=== PATIENT | female | born 1960 | race Caucasian/White ===

== ENCOUNTER 2016-06-26 14:26 | Inpatient (IN) | payer MEDICARE, MEDICAID ==
[2016-06-26 14:27] VITALS: BMI 25.4
--- NOTE | 2016-06-26 16:21 | C.PDOC ---
History Of Present Illness 55 y/o female presents to the ED for evaluation of open sore to the left heel. She reports that she has taken two antibiotics, she does not remember the first one, but she is now on Clindamycin without any healing or improvement of pain. Patient states she was evaluated by Dr. Dowling who told her to come to the ER. Patient denies any fever, chest pain, shortness of breath, nausea, vomiting, or other complaints. Time Seen by Provider: 06/26/16 15:25 Chief Complaint (Nursing): Lower Extremity Problem/Injury History Per: Patient History/Exam Limitations: no limitations Onset/Duration Of Symptoms: Days, Persistent Current Symptoms Are (Timing): Still Present Recent travel outside of the [place]: No Past Medical History Reviewed: Historical Data, Nursing Documentation, Vital Signs Vital Signs: Last Vital Signs Temp 98.2 F 06/26/16 15:17 Pulse 79 06/26/16 15:17 Resp 19 06/26/16 15:17 BP 122/72 06/26/16 15:17 Pulse Ox 99 06/26/16 17:37 - Medical History PMH: Hypercholesterolemia, Multiple Sclerosis Surgical History: No Surg Hx - [facility] Procedures DRAINAGE OF URETHRA WITH DRAINAGE DEVICE, ENDO (10/19/15) INSERTION OF INFUSION DEV INTO SUP VENA CAVA, PERC APPROACH (03/13/16) MEASUREMENT OF URINARY PRESSURE, VIA OPENING (10/19/15) PLAIN RADIOGRAPHY OF BLADDER AND URETHRA (10/19/15) Family History: States: No Known Family Hx - Social History Hx Tobacco Use: No Hx Alcohol Use: No Hx Substance Use: No - Immunization History Hx Tetanus Toxoid Vaccination: No Hx Influenza Vaccination: No Hx Pneumococcal Vaccination: No Review Of Systems Except As Marked, All Systems Reviewed And Found Negative. Constitutional: Negative for: Fever Cardiovascular: Negative for: Chest Pain Respiratory: Negative for: Shortness of Breath Gastrointestinal: Negative for: Nausea, Vomiting Musculoskeletal: Positive for: Foot Pain (left foot w/ open sore) Physical Exam - Physical Exam Appears: Non-toxic, No Acute Distress Skin: Warm, Dry Head: Atraumatic, Normacephalic Neck: Normal ROM Chest: Symmetrical Cardiovascular: Rhythm Regular Respiratory: Normal Breath Sounds, No Rales, No Rhonchi, No Wheezing Extremity: Normal ROM, Other (left foot, right sided hemapheresis, 2 cm diameter sore to the left heel with some erythema extending to the top of the left foot) Pulses: Left Dorsalis Pedis: Normal, Right Dorsalis Pedis: Normal Neurological/Psych: Oriented x3, Normal Speech, Normal Cognition, No Normal Cranial Nerves (r nasolabial fold flattening), No Normal Motor (weakness in all 4 extremities, R>L), Normal Sensation ED Course And Treatment - Laboratory Results Result Diagrams: 06/26/16 16:33 06/26/16 17:02 O2 Sat by Pulse Oximetry: 99 (ra) Pulse Ox Interpretation: Normal - Other Rad Chest X-Ray X-Ray: Viewed By Me, Read By Radiologist Interpretation: Accession No. : [id number]. Patient Name / ID : RAJESH SANTANA / [id number]. Exam Date : 06/26/2016 16:03:05 ( Approved ). Study Comment : Sex / Age : F / 55Y. Creator : Spring Andrade V. Dictator : Spring Andrade V. Target Man : Shirt Cleaner : Spring nAdrade V. Approver2 : Report Date : 06/26/2016 16:57:44. My Comment : . PROCEDURE: CHEST RADIOGRAPH, 1 VIEW. HISTORY: admission. COMPARISON: None available. FINDINGS: LUNGS: Shallow lungs. Fullness of the right hilum either due to crowding or right central pathology. No consolidation noted. PLEURA: No pneumothorax or pleural fluid seen. CARDIOVASCULAR: Normal. OSSEOUS STRUCTURES: No significant abnormalities. VISUALIZED UPPER ABDOMEN: Normal. OTHER FINDINGS: None. IMPRESSION: No consolidation. Prominent right hilum possibly due to crowding due to the shallow inspiration. Consider chest x-ray PA and lateral with greater inspiration when patient can tolerate X-Ray, Left Foot X-Ray: Viewed By Me, Read By Radiologist Interpretation: Accession No. : [id number]. Patient Name / ID : RAJESH SANTANA / [id number]. Exam Date : 06/26/2016 16:02:53 ( Approved ). Study Comment : Sex / Age : F / 55Y. Creator : Spring Andrade V. Dictator : Spring Andrade V. Target Man : Shirt Cleaner : Spring Andrade V. Approver2 : Report Date : 06/26/2016 16:55:29. My Comment : . PROCEDURE: Left Foot Radiographs. HISTORY: heel infection. COMPARISON: None. FINDINGS: BONES: No fracture. No gross periosteal reactions seen to suggest osteomyelitis. A hindfoot ulcer as the approximate see calcaneus. No gross cortical destruction here noted 1st metatarsal-phalangeal joint hypertrophic arthrosis of hallux valgus orientation. Sissoring of the 5th toe over the 4th in the 1st toe over the 2nd. JOINTS: Normal. SOFT TISSUES: A 1.2 cm hindfoot ulcer suggested. Atherosclerotic vascular calcifications present. There is dorsal and plantar midfoot and forefoot soft tissue swelling synthesis subcutaneous edema is lymphedema and/or cellulitis here. OTHER FINDINGS: None. IMPRESSION: Hindfoot soft tissue ulceration. No gross contiguous cortical interruption or periosteal reaction seen to suggest osteomyelitis. Midfoot and forefoot circumferential soft tissue swelling and hyperdensity - consistent with lymphedema and/or cellulitis. Findings appear most pronounced over the dorsal aspect. No subcutaneous gas seen Progress Note: Chest X-Ray, Blood Work, and Left Foot X-Ray were ordered. Patient treated with Vancomycin IVPB. Case was d/w pt's PMD who accepted patient for admission for foot ulcer, cellulitis, failing outpatient po treatment. Disposition - Disposition Disposition: HOSPITALIZED Disposition Time: 17:43 Condition: FAIR - Clinical Impression Clinical Impression: Foot ulcer, Cellulitis of foot, Multiple sclerosis - PA / SPECIFICATIONS WRITER / Resident Statement MD/DO has reviewed & agrees with the documentation as recorded. - Scribe Statement The provider has reviewed the documentation as recorded by the Scribe (Yaz Jacobson) All medical record entries made by the Scribe were at my direction and personally dictated by me. I have reviewed the chart and agree that the record accurately reflects my personal performance of the history, physical exam, medical decision making, and the department course for this patient. I have also personally directed, reviewed, and agree with the discharge instructions and disposition. Decision To Admit - Pt Status Changed To: Hospital Disposition Of: Inpatient - Admit Certification Admit to Inpatient:: After my assessment, the patient will require hospitalization for at least two midnights. This is because of the severity of symptoms shown, intensity of services needed, and/or the medical risk in this patient being treated as an outpatient. - InPatient: Physician Admission Certification: I certify that this patient requires 2 or more midnights of care for the following reason:: Foot ulcer with cellulitis that failed outpatient treatment with 2 different po antibiotics. She will need IV antibiotics for more than 2 days. - . Bed Request Type: Regular Admitting Physician: Ady Dowling Patient Diagnosis: Foot ulcer, Cellulitis of foot, Multiple sclerosis
[2016-06-26 16:35] LABS: ADD MANUAL DIFF? NO
[2016-06-26 16:56] LABS: BASO % 0.4 % (0.0-2.0); EOS # 0.1 K/uL (0.0-0.7); EOS % 0.7 % (0.0-4.0); HEMATOCRIT 45.2 % (34.0-47.0); LYMPH # 1.2 K/uL (1.0-4.3); MEAN CELL VOLUME 82.9 fL (81.0-99.0); MEAN CORPUSCULAR HGB CONC 32.6 g/dL (33.0-37.0); MEAN PLATELET VOLUME 9.7 fL (7.2-11.7); MONO # 0.9 K/uL (0.0-0.8); MONO % 7.7 % (0.0-10.0); PLATELET COUNT 275 K/uL (130-400); WHITE BLOOD COUNT 11.3 K/uL (4.8-10.8)
--- NOTE | 2016-06-26 16:56 | RAD ---
PROCEDURE: Left Foot Radiographs HISTORY: heel infection COMPARISON: None. FINDINGS: BONES: No fracture. No gross periosteal reactions seen to suggest osteomyelitis. A hindfoot ulcer as the approximate see calcaneus. No gross cortical destruction here noted 1st metatarsal-phalangeal joint hypertrophic arthrosis of hallux valgus orientation. Sissoring of the 5th toe over the 4th in the 1st toe over the 2nd JOINTS: Normal. SOFT TISSUES: A 1.2 cm hindfoot ulcer suggested. Atherosclerotic vascular calcifications present. There is dorsal and plantar midfoot and forefoot soft tissue swelling synthesis subcutaneous edema is lymphedema and/or cellulitis here. OTHER FINDINGS: None. IMPRESSION: Hindfoot soft tissue ulceration. No gross contiguous cortical interruption or periosteal reaction seen to suggest osteomyelitis. Midfoot and forefoot circumferential soft tissue swelling and hyperdensity - consistent with lymphedema and/or cellulitis. Findings appear most pronounced over the dorsal aspect. No subcutaneous gas seen
--- NOTE | 2016-06-26 16:59 | RAD ---
PROCEDURE: CHEST RADIOGRAPH, 1 VIEW HISTORY: admission COMPARISON: None available. FINDINGS: LUNGS: Shallow lungs. Fullness of the right hilum either due to crowding or right central pathology. No consolidation noted PLEURA: No pneumothorax or pleural fluid seen. CARDIOVASCULAR: Normal. OSSEOUS STRUCTURES: No significant abnormalities. VISUALIZED UPPER ABDOMEN: Normal. OTHER FINDINGS: None. IMPRESSION: No consolidation. Prominent right hilum possibly due to crowding due to the shallow inspiration Consider chest x-ray PA and lateral with greater inspiration when patient can tolerate
[2016-06-26 17:06] LABS: BLOOD UREA NITROGEN 14 mg/dL (7-17); CHLORIDE 98 mmol/L (98-107); GFR AFRICAN-AMERICAN > 60; GLUCOSE,RANDOM 91 mg/dL (65-105); POTASSIUM 4.5 mmol/L (3.6-5.2); SODIUM 137 mmol/L (132-148)
[2016-06-26 17:07] LABS: ALB/GLOB RATIO 1.3 (1.0-2.1); ALKALINE PHOSPHATASE 79 U/L (38-126); ALT/SGPT 21 U/L (9-52); AST/SGOT 34 U/L (14-36); BILIRUBIN,TOTAL 0.8 mg/dL (0.2-1.3); CALCIUM 9.2 mg/dl (8.6-10.4); CARBON DIOXIDE 23 mmol/L (22-30); TOTAL PROTEIN 8.3 g/dL (6.3-8.3)
[2016-06-26] MEDS ORDERED: guaiFENesin 200 mg/10 ml Syrup UD PO STA (22:31)
[2016-06-27 01:27] VITALS: RESP 20
[2016-06-27] MEDS ORDERED: Baclofen 5 mg Tab PO SCH (10:00)
[2016-06-27] MEDS: Pantoprazole 40 mg EC Tab PO SCH (11:00)
--- NOTE | 2016-06-27 11:27 | HP ---
This is a 55-year-old [place] female with history of multiple sclerosis and advanced lower extremity and upper extremity weakness. The patient is mostly wheelchair bound. The patient left foot redness and pain and ulceration. The patient has been treated by podiatry for the same for about 2 months . The patient was evaluated also redness of the left foot signs of cellulitis. REVIEW OF SYSTEMS: is negative . HOME MEDICATIONS: Crestor 5 mg daily, omeprazole 40 mg daily. SOCIAL HISTORY: No history of smoking, ETOH or substance abuse. FAMILY HISTORY: Not contributory. PAST MEDICAL HISTORY: Multiple sclerosis, gastroesophageal reflux disease. PHYSICAL EXAMINATION: GENERAL: The patient is in bed, comfortable . VITAL SIGNS: Blood pressure 118/77, temperature 98.2, 16 and pulse 76. HEENT: Pupils reactive to light. Normal-appearing mucosa of the conjunctivae , oropharyngeal, nasal membrane mucosa. NECK: Supple, no JVD, no carotid bruit, no lymph node, no thyromegaly. CHEST AND LUNGS: Bilateral symmetrical expansion, good air exchange. No rales , no rhonchi. CARDIOVASCULAR: PMI not localized, S1, S2. No additional sounds. ABDOMEN: Normoactive bowel sounds, no tenderness, no organomegaly, no masses. EXTREMITIES: No cyanosis, no clubbing, no edema. CENTRAL NERVOUS SYSTEM: Alert, awake, oriented x 3 and patient has bilateral lower extremity weakness _ with ulcer on the left side heel. ASSESSMENT: 1. Left foot ulcer with cellulitis. 2. Multiple sclerosis with bilateral lower . PLAN: We will give patient oral vancomycin and Primaxin. Continue current medications. Podiatry consult. Ady Dowling MD cc: [id number] TT: 06/27/2016 09:04:56 en MTDD
--- NOTE | 2016-06-27 16:55 | CP.PCM.PN ---
Subjective - Date & Time of Evaluation Date of Evaluation: 06/27/16 Time of Evaluation: 16:56 - Subjective Subjective: alert, orientedx3, no sob or chest pains. Has diffused rash generalized, no itching. Objective - Vital Signs/Intake and Output Vital Signs (last 24 hours): Temp Pulse Resp BP Pulse Ox 97.9 F 85 20 109/76 96 06/27/16 08:27 06/27/16 08:27 06/27/16 08:27 06/27/16 08:27 06/27/16 08:27 Intake and Output: 06/27/16 06/27/16 06:59 18:59 Intake Total 790 Balance 790 - Medications Medications: Current Medications Baclofen (Lioresal) 10 mg PO DAILY [facility] Last Admin: 06/27/16 12:10 Dose: 10 mg Diphenhydramine HCl (Benadryl) 25 mg PO Q6 PRN PRN Reason: Itching / Pruritus Heparin Sodium (Porcine) (Heparin) 5,000 units SC Q12 [facility] Last Admin: 06/27/16 11:00 Dose: 5,000 units Vancomycin HCl 750 mg/ Sodium (Chloride) 250 mls @ 166 mls/hr IVPB Q12H [facility] Last Admin: 06/27/16 06:36 Dose: 166 mls/hr Methylprednisolone (Solu-Medrol) 125 mg IVP ONCE ONE Stop: 06/27/16 16:51 Pantoprazole Sodium (Protonix Ec Tab) 40 mg PO DAILY [facility] Last Admin: 06/27/16 11:00 Dose: 40 mg Rosuvastatin Calcium (Crestor) 5 mg PO HS [facility] Last Admin: 06/26/16 21:37 Dose: 5 mg Assessment and Plan - Assessment and Plan (Free Text) Assessment: notified with diffused rash generalized on the body . Seen and examined with DR Dowling. Possible allergic reaction to the present antibiotic. No respiratory distress or fever. Will discontinue imipenum and give solumedrol 125 mg stat and continue with benadryl 25 mg q6 h prn. Monitor closely.
--- NOTE | 2016-06-27 23:04 | PN ---
DATE: 06/27/2016 SUBJECTIVE: The patient is seen today, 06/27/2016. The patient has upper chest and trunk rashes. She is not itchy, but she complains of cough. PHYSICAL EXAMINATION: VITAL SIGNS: Blood pressure is 110/74, temperature 99.3, respiratory rate 20, and pulse is 88. HEENT: Pupils equal, reactive to light. Normal-appearing mucosa of the conjunctivae, oropharyngeal and nasal membrane mucosa. NECK: Supple, no JVD, no carotid bruit, no lymph node, no thyromegaly. CHEST AND LUNGS: Bilateral symmetrical expansion, good air exchange, no rales, no rhonchi. CARDIOVASCULAR: PMI not localized. S1, S2. No additional sounds. ABDOMEN: Normoactive bowel sounds, no tenderness, no organomegaly, no masses. EXTREMITIES: No cyanosis, no clubbing, no edema. There is a left heel ulcer and edema. SKIN: The patient has maculopapular erythematous rashes all over the upper chest and upper trunk. CENTRAL NERVOUS SYSTEM: Alert, awake, oriented x 2 and the patient has bilateral lower extremity deformity and weakness secondary to multiple sclerosis. ASSESSMENT: 1. Left foot ulcer with cellulitis. 2. Diffuse skin rashes, likely drug reaction. PLAN: We will stop the Primaxin, give patient Solu-Medrol and Benadryl and will continue vancomycin for now. Ady Dowling MD cc: [id number] TT: 06/27/2016 23:03:24 Confirmation # [id number] Dictation # [id number] priscilla BERG
[2016-06-28] MEDS: Pantoprazole 40 mg EC Tab PO SCH (10:51)
[2016-06-28 11:18] LABS: HEMATOCRIT 39.1 % (34.0-47.0); LYMPH # 0.9 K/uL (1.0-4.3); LYMPH % 17.6 % (20.0-40.0); MEAN CELL VOLUME 82.5 fL (81.0-99.0); MEAN CORPUSCULAR HEMOGLOBIN 27.3 pg (27.0-31.0); MEAN CORPUSCULAR HGB CONC 33.1 g/dL (33.0-37.0); MEAN PLATELET VOLUME 9.6 fL (7.2-11.7); MONO # 0.5 K/uL (0.0-0.8); RED CELL DISTRIBUTION WIDTH 15.6 % (11.5-14.5); WHITE BLOOD COUNT 5.3 K/uL (4.8-10.8)
[2016-06-28 11:27] LABS: CHLORIDE 101 mmol/L (98-107); POTASSIUM 4.1 mmol/L (3.6-5.2); SODIUM 138 mmol/L (132-148)
[2016-06-28 11:29] LABS: GFR AFRICAN-AMERICAN > 60
[2016-06-28 11:30] LABS: BLOOD UREA NITROGEN 17 mg/dL (7-17); CARBON DIOXIDE 24 mmol/L (22-30); GLUCOSE,RANDOM 106 mg/dL (65-105)
--- NOTE | 2016-06-28 13:18 | CP.PCM.CON ---
History of Present Illness - History of Present Illness History of Present Illness: 55 y/o female with left heel ulceration. with resolving cellulitis Patient seen by Dr. Simmons at bedside. Patient states she has been on multiple antibiotics for heel ulceration of which she felt had gotten worse so she presented ot [facility] ED for evaluation and was admitted. At time of exam no pain complaint is noted. NO other pedal complaints noted. Past Patient History - Infectious Disease Hx of Infectious Diseases: None - Past Medical History & Family History Past Medical History?: Yes - Past Social History Smoking Status: Never Smoked - CARDIAC Hx Hypercholesterolemia: Yes - PULMONARY Hx Respiratory Disorders: No - NEUROLOGICAL Hx Neurological Disorder: Yes Hx Multiple Sclerosis: Yes - HEENT Hx HEENT Problems: No - RENAL Hx Chronic Kidney Disease: No - ENDOCRINE/METABOLIC Hx Endocrine Disorders: No - HEMATOLOGICAL/ONCOLOGICAL Hx Blood Disorders: No - INTEGUMENTARY Hx Dermatological Problems: No - MUSCULOSKELETAL/RHEUMATOLOGICAL Hx Musculoskeletal Disorders: Yes Hx Falls: Yes - GASTROINTESTINAL Hx Gastrointestinal Disorders: No - GENITOURINARY/GYNECOLOGICAL Hx Genitourinary Disorders: No - PSYCHIATRIC Hx Psychophysiologic Disorder: No Hx Substance Use: No - SURGICAL HISTORY Hx Surgeries: No Other/Comment: right arm fx - ANESTHESIA Hx Anesthesia: No Hx Anesthesia Reactions: No Hx Malignant Hyperthermia: No Has any member of the family had a problem w/ anesthesia?: No Meds Allergies/Adverse Reactions: Allergies Allergy/AdvReac Type Severity Reaction Status Date / Time No Known Allergies Allergy Verified 06/26/16 15:19 - Medications Medications: Current Medications Acetaminophen (Tylenol 325mg Tab) 650 mg PO Q6 PRN PRN Reason: Pain, moderate (4-7) Baclofen (Lioresal) 10 mg PO DAILY [facility] Last Admin: 06/28/16 10:54 Dose: 10 mg Diphenhydramine HCl (Benadryl) 25 mg PO Q6 PRN PRN Reason: Itching / Pruritus Last Admin: 06/28/16 10:51 Dose: 25 mg Heparin Sodium (Porcine) (Heparin) 5,000 units SC Q12 [facility] Last Admin: 06/28/16 10:52 Dose: 5,000 units Vancomycin HCl 750 mg/ Sodium (Chloride) 250 mls @ 166 mls/hr IVPB Q12H [facility] Last Admin: 06/28/16 05:00 Dose: 166 mls/hr Pantoprazole Sodium (Protonix Ec Tab) 40 mg PO DAILY [facility] Last Admin: 06/28/16 10:51 Dose: 40 mg Rosuvastatin Calcium (Crestor) 5 mg PO HS [facility] Last Admin: 06/27/16 22:03 Dose: 5 mg Physical Exam - Constitutional Appears: Well, Non-toxic Results - Vital Signs Recent Vital Signs: Last Vital Signs Temp 98.3 F 06/28/16 08:15 Pulse 73 06/28/16 08:15 Resp 20 06/28/16 08:15 BP 95/63 L 06/28/16 08:15 Pulse Ox 97 06/28/16 08:15 - Labs Result Diagrams: 06/28/16 11:09 06/28/16 11:09 Labs: Laboratory Results - last 24 hr 06/28/16 06/28/16 11:09 11:09 WBC 5.3 D RBC 4.74 Hgb 12.9 Hct 39.1 MCV 82.5 MCH 27.3 MCHC 33.1 RDW 15.6 H Plt Count 253 MPV 9.6 Neut % (Auto) 73.4 Lymph % (Auto) 17.6 L [place] % (Auto) 9.0 Eos % (Auto) 0.0 Baso % (Auto) 0.0 Neut # 3.9 Lymph # 0.9 L [place] # 0.5 Eos # 0.0 Baso # 0.0 Sodium 138 Potassium 4.1 Chloride 101 Carbon Dioxide 24 Anion Gap 17 BUN 17 Creatinine 0.6 L Est GFR ( Amer) > 60 Est GFR (Non-Af Amer) > 60 Random Glucose 106 H Assessment & Plan - Assessment and Plan (Free Text) Assessment: 55 y/o female with left heel ulceration with resolving cellulitis. Plan: Patient evaluated and charts reviewed Seen by attending Dr. Lozoya Wound debrided at bedside by Dr. Lozoya w/o complicaiton Wound orders put in place by Dr. Lozoya. Wound does not appear to be deep to the bone; Will continue to follow as needed.
[2016-06-28 14:03] LABS: CALCIUM 8.6 mg/dl (8.6-10.4)
[2016-06-29] MEDS ORDERED: guaiFENesin 100 mg/5 ml Syrup UD PO ONE (06:49)
--- NOTE | 2016-06-29 08:07 | PN ---
DATE: 06/28/2016 SUBJECTIVE: She has ulcer on the left heel with decreasing cellulitis in the area around, and x-ray did not show any evidence of osteomylitis. PHYSICAL EXAMINATION. VITAL SIGNS: Blood pressure 130/63, temperature 98.3, respiratory rate 20, and pulse 73. HEENT: Pupils equal, reactive to light. Normal-appearing mucosa of the conjunctivae, oropharyngeal, and nasal membrane mucosa. NECK: Supple, no JVD, no carotid bruit, no lymph nodes, no thyromegaly. CHEST AND LUNGS: No rales, no rhonchi. CARDIOVASCULAR: PMI not localized, S1 and S2. no additional sounds. ABDOMEN: Normoactive bowel sounds, no tenderness, no organomegaly, no masses. EXTREMITIES: No cyanosis, no clubbing, no edema. Left heel ulcer, which is 1 x 2 cm, and with surrounding tenderness and no purulent discharge. ASSESSMENT: 1. Left heel ulcer with cellulitis. 2. Multiple sclerosis with bilateral lower extremity weakness. . PLAN: Continue current IV antibiotics, vancomycin, Primaxin, because of the suspicion of allergic reaction and evaluate for subacute rehabilitation. Ady Dowling MD cc: [id number] TT: 06/28/2016 23:36:04 Confirmation # [id number] Dictation # [id number] pro MTDD
[2016-06-29 08:39] VITALS: BP 122/79; PULSE 73; TEMP 98; O2SAT 100
[2016-06-29] MEDS: Pantoprazole 40 mg EC Tab PO SCH (10:00)
[2016-06-29] MEDS ORDERED: Gadodiamide 287 MG/ML VIAL (15ML) IV ONE (14:05)
--- NOTE | 2016-06-29 16:06 | CP.PCM.PN ---
Subjective - Date & Time of Evaluation Date of Evaluation: 06/29/16 Time of Evaluation: 16:06 - Subjective Subjective: ALERT, AWAKE, NO ACUTE DISTRESS. Objective - Vital Signs/Intake and Output Vital Signs (last 24 hours): Temp Pulse Resp BP Pulse Ox 98.0 F 73 20 122/79 100 06/29/16 08:38 06/29/16 08:38 06/29/16 08:38 06/29/16 08:38 06/29/16 08:38 Intake and Output: 06/29/16 06/29/16 06:59 18:59 Intake Total 1000 Balance 1000 - Medications Medications: Current Medications Acetaminophen (Tylenol 325mg Tab) 650 mg PO Q6 PRN PRN Reason: Pain, moderate (4-7) Last Admin: 06/29/16 07:08 Dose: 650 mg Baclofen (Lioresal) 10 mg PO DAILY [facility] Last Admin: 06/29/16 09:59 Dose: 10 mg Diphenhydramine HCl (Benadryl) 25 mg PO Q6 PRN PRN Reason: Itching / Pruritus Last Admin: 06/28/16 21:05 Dose: 25 mg Heparin Sodium (Porcine) (Heparin) 5,000 units SC Q12 [facility] Last Admin: 06/29/16 10:00 Dose: 5,000 units Vancomycin HCl 750 mg/ Sodium (Chloride) 250 mls @ 166 mls/hr IVPB Q12H [facility] Last Admin: 06/29/16 06:01 Dose: 166 mls/hr Pantoprazole Sodium (Protonix Ec Tab) 40 mg PO DAILY [facility] Last Admin: 06/29/16 10:00 Dose: 40 mg Rosuvastatin Calcium (Crestor) 5 mg PO HS [facility] Last Admin: 06/28/16 21:05 Dose: 5 mg - Labs Labs: 06/28/16 11:09 06/28/16 11:09 Assessment and Plan - Assessment and Plan (Free Text) Assessment: Patient is seen and examined in the room. Alert and orientedx3, complaints of pain on left foot. Sent for MRI today. D/W DR Dowling, plan to send to [place] today on vancomycin iv x7 days, continue wound care and follow up on MRI results. Patient verbalized understanding.
--- NOTE | 2016-06-29 16:08 | MRI ---
MRI left hindfoot History: Cellulitis. Evaluate for osteomyelitis. Comparison: None available. Technique: Multi-echo multiplanar sequences were performed through the left hindfoot without and with the use of intravenous contrast. Findings: Large soft tissue ulcer seen within the lateral posterior soft tissues at the level of the hindfoot measuring 2.1 x 1.1 centimeters extending to the subchondral bone of the lateral posterior calcaneus. Within the calcaneus, there is focal signal abnormality measuring approximately 1.2 x .4 centimeters demonstrating patchy decreased T1 signal with increased STIR signal and post-contrast enhancement concerning for a developing acute osteomyelitis. Focal signal abnormality seen within the mid calcaneus just inferior to the sinus tarsi with focal decreased T1 signal and increased STIR signal which may represent an underlying stress injury versus subchondral osseous injury versus developing osteochondral change. Clinical correlation. Anterior extensor tendons are preserved. Mild tenosynovitis of the posterior tibial tendon sheath. Remainder of the medial flexor tendons are preserved. Mild partial split tear of the peroneus brevis tendon at the level of the lateral malleolus. Anterior and posterior tibiofibular ligaments are preserved. Anterior and posterior talofibular ligaments are preserved. Achilles tendon preserved. Mild increased signal seen within the plantar fascia at its insertion on the inferior calcaneus. Sinus tarsi preserved. Deltoid ligament is preserved. Impression: 1. Large soft tissue ulcer seen within the lateral posterior soft tissues at the level of the hindfoot measuring 2.1 x 1.1 centimeters extending to the subchondral bone of the lateral posterior calcaneus. Within the calcaneus, there is focal signal abnormality measuring approximately 1.2 x .4 centimeters demonstrating patchy decreased T1 signal with increased STIR signal and post-contrast enhancement concerning for a developing acute osteomyelitis. 2. Focal signal abnormality seen within the mid calcaneus just inferior to the sinus tarsi with focal decreased T1 signal and increased STIR signal which may represent an underlying stress injury versus subchondral osseous injury versus developing osteochondral change. Clinical correlation. 3. Mild tenosynovitis of the posterior tibial tendon sheath. Remainder of the medial flexor tendons are preserved. 4. Mild partial split tear of the peroneus brevis tendon at the level of the lateral malleolus. 5. Mild increased signal seen within the plantar fascia at its insertion on the inferior calcaneus.
--- NOTE | 2016-06-30 00:17 | DS ---
REASON FOR ADMISSION: The patient is seen today, 06/29/2016. She is not in any cardiopulmonary distress. This is a 55-year-old [place] female with history of disabling multiple sclerosis admitted for left foot ulcer associated with cellulitis. COURSE OF HOSPITALIZATION: The patient was admitted to medical floor and she was on Primaxin. The patient started to develop rashes and Primaxin was started and the patient was given also 1 dose of Solu-Medrol and Benadryl. The patient's symptoms remarkably improved and the patient was also having podiatry consultation done during this admission. The patient was started on physical therapy and discharged to subacute rehabilitation at [facility] to continue current medications. FINAL DIAGNOSES: Left foot ulcer, cellulitis, multiple sclerosis. Ady Dowling MD cc: [id number] TT: 06/30/2016 00:17:32 priscilla BERG
== END 2016-06-29 18:20 | DRG 593 ==
LOC: C.ER 14:26 → C.3T 17:47
PROVIDERS: ADMIT Internal Medicine; ATTEND Internal Medicine
PROC: 0HDNXZZ Extraction of Left Foot Skin, External Approach (ICD-10-PCS; principal; 2016-06-26)
DX: L97.429 Non-pressure chronic ulcer of left heel and midfoot with unspecified severity (principal); L03.119 Cellulitis of unspecified part of limb; G35 Multiple sclerosis; R21 Rash and other nonspecific skin eruption; E78.00 Pure hypercholesterolemia, unspecified; Z79.899 Other long term (current) drug therapy; K21.9 Gastro-esophageal reflux disease without esophagitis; T45.3X5A Adverse effect of enzymes, initial encounter

== ENCOUNTER 2017-01-14 08:12 | Day surgery (SDC) | payer MEDICARE, MEDICAID ==
[2016-12-26 13:41] VITALS: BMI 25.4
[2017-01-14] MEDS ORDERED: Bacitracin 50,000 UNIT in Sodium Chloride 0.9% Irrig 1,000 ML IR SCH (08:45)
[2017-01-14] MEDS ORDERED: ceFAZolin IV 1 gm in Dextrose 1 GM/50 ML BAG IVPB ONE (08:47)
[2017-01-14] MEDS ORDERED: ceFAZolin IV 2 gm in Dextrose 0 GM/0 ML BAG IVPB ONE (08:48)
[2017-01-14] MEDS ORDERED: Propofol 10 mg/ml 1,000 MG/100 ML VIAL ONE (08:49)
[2017-01-14] MEDS ORDERED: Midazolam 2 MG/2 ML VIAL ONE (08:50)
[2017-01-14] MEDS ORDERED: Lactated Ringer's 1,000 ML IV ONE ×2 (08:52)
[2017-01-14] MEDS: Lidocaine 1% Inj (20ml) ONE ×2 (08:54→09:30)
[2017-01-14] MEDS: Bupivacaine 0.5% Inj(30mL) ONE ×2 (08:54→09:30)
[2017-01-14] MEDS ORDERED: HYDROmorphone 0.5 mg/0.5 ml ISec IVP PRN (11:05)
[2017-01-14] MEDS ORDERED: Oxycodone/Acetaminophen 5/325 mg Tab PO PRN ×2 (11:05)
--- NOTE | 2017-01-14 11:13 | PCM.SURG1 ---
Surgeon's Initial Post Op Note - Surgeon's Notes Surgeon: Dr. Bustillo Clinical Implementation Specialist: Dr. Aundrea Calderon, PGY-2; Dr. Richard Schaefer PGY-1 Type of Anesthesia: IV Sedation, Local Pre-Operative Diagnosis: hallux valgus right foot Operative Findings: see op report Post-Operative Diagnosis: same Operation Performed: osteotomy 1st metatarsal right foot with k-wire fixation, osteotomy proximal phalanx right foot Specimen/Specimens Removed: bone Estimated Blood Loss: EBL {In ML}: 10 Blood Products Given: N/A Drains Used: No Drains Post-Op Condition: Good Date of Surgery/Procedure: 01/14/17 Time of Surgery/Procedure: 09:30
[2017-01-14 13:40] VITALS: BP 101/69; PULSE 67; RESP 18; TEMP 97.9; O2SAT 99
--- NOTE | 2017-01-15 08:51 | RAD ---
PROCEDURE: Right Foot Radiographs. HISTORY: s/p right foot surgery COMPARISON: 12/27/2016 FINDINGS: BONES: Marked osteopenia present. Interval osteotomy 1st metatarsal with malalignment suggested on the oblique view - distal osseous structures projecting inferior to the proximal metatarsal. The pin transfixes these 2 post osteotomy sites. A discrete 6-7 mm triangular osseous fragment on the lateral view is dorsal to the pin. A single view cortical offset of the 1st proximal phalanx is suggested. Examination is limited with the overlying obscuring cast-/splint a fracture this 1st proximal phalanx is suspect. The medial 1st metatarsal head is partially excise probably relating to concomitant splenectomy here JOINTS: Normal. SOFT TISSUES: Innumerable soft tissue calcifications/ossifications consistent with innumerable phleboliths and/ or dermato myositis. OTHER FINDINGS: None. IMPRESSION: Postop changes as above. 6 to 7 mm triangular osseous fragment dorsal to pin. Correlate clinically Probable nondisplaced fracture 1st proximal phalanx -exam limited with confounding overlying obscuration by cast/splint
== END 2017-01-14 16:13 | disposition home or self-care (01) ==
LOC: C.SDS 08:12
PROVIDERS: ATTEND Podiatrist Foot Surgery
DX: M20.11 Hallux valgus (acquired), right foot (principal)
CPT/HCPCS: 28299; 73630; 88304; 97163; 97530; G8978; G8979; J2250; J3010; J7120

== ENCOUNTER 2017-04-24 10:46 | Inpatient (IN) | payer MEDICARE, MEDICAID ==
[2017-04-24 10:47] VITALS: BMI 25.4
[2017-04-24] MEDS ORDERED: Piperacillin/Tazobact 3.375 gm 100 ML IV STA (11:19)
--- NOTE | 2017-04-24 12:26 | C.PDOC ---
History Of Present Illness 72-year-old female, is sent to the emergency department by her doctor, for IV antibiotics for right infection. Patient states her foot was infected, and she had a surgery for it, after which she was in rehab. Denies fevers, chills, nausea/vomiting, recent travel. dizziness, headache or any other associated symptoms. No other complaints at this time. Retail Shift Leader Angel Lozoya MD Time Seen by Provider: 04/24/17 10:53 Chief Complaint (Nursing): Abnormal Skin Integrity History Per: Patient History/Exam Limitations: no limitations Past Medical History Reviewed: Historical Data, Nursing Documentation, Vital Signs Vital Signs: Last Vital Signs Temp 97.8 F 04/24/17 10:48 Pulse 80 04/24/17 10:48 Resp 18 04/24/17 10:48 BP 133/90 04/24/17 10:48 Pulse Ox 99 04/24/17 14:49 - Medical History PMH: Arthritis, Hypercholesterolemia, Multiple Sclerosis - [facility] Procedures DRAINAGE OF URETHRA WITH DRAINAGE DEVICE, ENDO (10/19/15) EXTRACTION OF LEFT FOOT SKIN, EXTERNAL APPROACH (06/26/16) INSERTION OF INFUSION DEV INTO SUP VENA CAVA, PERC APPROACH (12/26/16) MEASUREMENT OF URINARY PRESSURE, VIA OPENING (10/19/15) PLAIN RADIOGRAPHY OF BLADDER AND URETHRA (10/19/15) Family History: States: No Known Family Hx - Social History Hx Tobacco Use: No Hx Alcohol Use: No Hx Substance Use: No - Immunization History Hx Tetanus Toxoid Vaccination: No Hx Influenza Vaccination: No Hx Pneumococcal Vaccination: No Review Of Systems Constitutional: Negative for: Fever, Chills Cardiovascular: Negative for: Chest Pain Respiratory: Negative for: Shortness of Breath Gastrointestinal: Negative for: Nausea, Vomiting Musculoskeletal: Positive for: Foot Pain Neurological: Negative for: Weakness, Numbness Physical Exam - Physical Exam Appears: Non-toxic, No Acute Distress Skin: Warm, Dry, No Diaphoretic, No Rash Head: No Atraumatic, No Normacephalic Neck: Normal ROM Cardiovascular: Rhythm Regular, No Murmur Respiratory: Normal Breath Sounds, No Accessory Muscle Use Extremity: Capillary Refill (<2 seconds), No Deformity, No Swelling, Other ( Right foot:dorsal aspect of metatarsal wutg a dry oopen wound, with swelling and tenderness) Pulses: Left Dorsalis Pedis: Normal, Right Dorsalis Pedis: Normal Neurological/Psych: Oriented x3, Normal Speech ED Course And Treatment - Laboratory Results Result Diagrams: 04/24/17 12:30 04/24/17 12:30 O2 Sat by Pulse Oximetry: 99 (RA) Pulse Ox Interpretation: Normal Progress Note: Bloodwork, Blood cultures, UA, XR Foot ordered and reviewed. Patient treated with Zosyn. Disposition Discussed With Dr.: Ady Dowling Doctor Will See Patient In The: Hospital - Disposition Disposition: HOSPITALIZED Disposition Time: 14:00 Condition: STABLE - POA Present On Arrival: None - Clinical Impression Clinical Impression: Cellulitis, Cellulitis of foot - Scribe Statement The provider has reviewed the documentation as recorded by the Scribe (Irvin Amador) All medical record entries made by the Scribe were at my direction and personally dictated by me. I have reviewed the chart and agree that the record accurately reflects my personal performance of the history, physical exam, medical decision making, and the department course for this patient. I have also personally directed, reviewed, and agree with the discharge instructions and disposition. Decision To Admit - Pt Status Changed To: Hospital Disposition Of: Inpatient - Admit Certification Admit to Inpatient:: After my assessment, the patient will require hospitalization for at least two midnights. This is because of the severity of symptoms shown, intensity of services needed, and/or the medical risk in this patient being treated as an outpatient. - InPatient: Physician Admission Certification: I certify that this patient requires 2 or more midnights of care for the following reason:: cellulitis foot - . Bed Request Type: Regular Admitting Physician: Ady Dowling Patient Diagnosis: Cellulitis, Cellulitis of foot, Cellulitis
[2017-04-24] MEDS ORDERED: Piperacillin/Tazobact 3.375 GM in Sodium Chloride 100 ML IVPB ONE (12:30)
[2017-04-24 12:38] LABS: BASO % 0.4 % (0.0-2.0); EOS % 0.4 % (0.0-4.0); HEMOGLOBIN 12.5 g/dL (11.0-16.0); LYMPH # 1.5 K/uL (1.0-4.3); LYMPH % 16.2 % (20.0-40.0); MEAN CORPUSCULAR HEMOGLOBIN 28.3 pg (27.0-31.0); MEAN PLATELET VOLUME 9.7 fL (7.2-11.7); MONO # 0.4 K/uL (0.0-0.8); MONO % 4.7 % (0.0-10.0); NEUT # 7.3 K/uL (1.8-7.0); NEUT % 78.3 % (50.0-75.0); RBC 4.43 Mil/uL (3.80-5.20); RED CELL DISTRIBUTION WIDTH 14.5 % (11.5-14.5); WHITE BLOOD COUNT 9.3 K/uL (4.8-10.8)
[2017-04-24 12:40] LABS: MEAN CELL VOLUME 83.3 fL (81.0-99.0)
[2017-04-24 12:54] LABS: ALB/GLOB RATIO 1.4 (1.0-2.1); ALT/SGPT 26 U/L (9-52); AST/SGOT 23 U/L (14-36); BLOOD UREA NITROGEN 10 mg/dL (7-17); CALCIUM 9.4 mg/dl (8.6-10.4); GFR AFRICAN-AMERICAN > 60; GFR NON-AFRICAN AMERICAN > 60
--- NOTE | 2017-04-24 16:26 | RAD ---
Right foot dated 04/24/2017. History: Cellulitis. Three views right foot performed. Findings: Current study reveals deformity of the distal 1/3 of the 1st metatarsal and base proximal phalanx 1st digit ; rule out postoperative sequela or sequela of old trauma. Clinical correlation recommended. No evidence of acute displaced fracture nor dislocation. Osseous structures appear demineralized though otherwise intact. No cortical destructive changes seen. 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 Multi articular DJD. . There is mild diffuse circumferential soft tissue swelling most pronounced on the lateral view at the level of the plantar and the dorsal soft tissues surrounding the metatarsals consistent with this patient's history of cellulitis. Questionable defect within the posterior calcaneal soft tissues consider . Followup polyp MRI if osteomyelitis suspected Impression: Questionable postoperative versus posttraumatic changes 1st ray as described. No cortical destructive changes. Diffuse circumferential soft tissue swelling consistent with cellulitis. Consider followup MRI further evaluation is required.
[2017-04-24 17:41] LABS: SQUAMOUS EPITHIAL 18 /hpf (0-5); URINE BACTERIA OCC (<OCC); URINE BILIRUBIN NEGATIVE (NEGATIVE); URINE BLOOD NEGATIVE (NEGATIVE); URINE CLARITY Hazy (Clear); URINE COLOR Yellow (YELLOW); URINE GLUCOSE (UA) NORMAL (Normal); URINE LEUKOCYTE ESTERASE 3+ Leu/uL (Negative); URINE NITRATE NEGATIVE (NEGATIVE); URINE PROTEIN NEGATIVE (NEGATIVE); URINE UROBILINOGEN NORMAL mg/dL (0.2-1.0)
[2017-04-24] MEDS ORDERED: Piperacill/Tazo 3.375gm in Dex 3.375 GM/50 ML BAG IVPB SCH (22:00)
[2017-04-24] MEDS: Piperacillin/Tazobact 3.375 GM in Sodium Chloride 0.9% 100 ML IVPB SCH (22:35)
[2017-04-24] MEDS: Vancomycin 1 gm/NS 200 ml 1 GM/200 ML BAG IVPB SCH (23:54)
[2017-04-25 01:05] VITALS: RESP 20
[2017-04-25] MEDS: Piperacillin/Tazobact 3.375 GM in Sodium Chloride 0.9% 100 ML IVPB SCH ×3 (05:37→21:02)
[2017-04-25] MEDS: Calcium-Vit D 250 mg-125 Units Tab UD PO SCH (09:02)
[2017-04-25] MEDS: Omega-3-Acid Ethyl Esters 1 GM Cap PO SCH ×2 (09:03→17:36)
[2017-04-25] MEDS: Multiple Vitamins Tab PO SCH (09:03)
--- NOTE | 2017-04-25 11:01 | CP.PCM.CON ---
History of Present Illness - History of Present Illness History of Present Illness: Podiatry Consult note for Dr. Lozoya 56 year old female with PMHx including MS was seen at bedside with attending, Dr. Lozoya regarding left foot wound. Patient had left foot hallux valgus correction in January at [facility]. She was then transfered to a [facility]. She was seen in office by Dr. Lozoya where she had redness and the dorsal incision site was dehisced. She states that at home she has been dressing daily. She currently denies any pain to the site. Denies any n/v/f/c/sob/cp. Past Patient History - Infectious Disease Hx of Infectious Diseases: None - Past Medical History & Family History Past Medical History?: Yes - Past Social History Smoking Status: Never Smoked - CARDIAC Hx Hypercholesterolemia: Yes - NEUROLOGICAL Hx Multiple Sclerosis: Yes - INTEGUMENTARY Hx Dermatological Problems: Yes Other/Comment: HX: 12/26/16-CELLULITIS AND INFECTED RIGHT TOE BUNION - MUSCULOSKELETAL/RHEUMATOLOGICAL Hx Arthritis: Yes Hx Falls: Yes - GASTROINTESTINAL Hx Gastrointestinal Disorders: Yes Hx Gastroesophageal Reflux: Yes - PSYCHIATRIC Hx Substance Use: No - SURGICAL HISTORY Hx Surgeries: No Other/Comment: HX:right arm fx; H/O right foot surgery. HX: 01/01/17-PICC LINE RIGHT BASILIC VEIN - ANESTHESIA Hx Anesthesia: No Hx Anesthesia Reactions: No Hx Malignant Hyperthermia: No Has any member of the family had a problem w/ anesthesia?: No Meds Allergies/Adverse Reactions: Allergies Allergy/AdvReac Type Severity Reaction Status Date / Time No Known Allergies Allergy Verified 04/24/17 10:50 - Medications Medications: Current Medications Acetaminophen (Tylenol 325mg Tab) 650 mg PO Q6 PRN PRN Reason: Pain, moderate (4-7) Last Admin: 04/25/17 09:03 Dose: 650 mg Baclofen (Lioresal) 10 mg PO TID [facility] Last Admin: 04/25/17 09:02 Dose: 10 mg Calcium/Vitamin D (Oscal-D 250 Mg-125 Units Tab) 1 tab PO DAILY [facility] Last Admin: 04/25/17 09:02 Dose: 1 tab Heparin Sodium (Porcine) (Heparin) 5,000 units SC Q12 [facility] Last Admin: 04/25/17 09:03 Dose: 5,000 units Piperacillin Sod/Tazobactam (Sod 3.375 gm/ Sodium Chloride) 100 mls @ 200 mls/ hr IVPB Q8H [facility] Last Admin: 04/25/17 05:37 Dose: 200 mls/hr Vancomycin/Sodium Chloride (Vancomycin 1 Gm/Ns 200 Ml) 1 gm in 200 mls @ 133 mls/hr IVPB Q24H [facility] Stop: 04/30/17 00:01 Last Admin: 04/24/17 23:54 Dose: 133 mls/hr Multivitamins (Hexavitamin) 1 tab PO DAILY [facility] Last Admin: 04/25/17 09:03 Dose: 1 tab Grxrw-1-Lnaf Ethyl Esters (Lovaza) 1 gm PO BID [facility] Last Admin: 04/25/17 09:03 Dose: 1 gm Pneumococcal Polyvalent Vaccine (Pneumovax 23 Vaccine) 0.5 ml IM .ONCE ONE Stop: 04/27/17 10:01 Rosuvastatin Calcium (Crestor) 5 mg PO HS [facility] Last Admin: 04/24/17 22:14 Dose: 5 mg Physical Exam - Constitutional Appears: Well, Non-toxic, No Acute Distress - Extremities Exam Additional comments: Left lower extremity focused exam: Vasc: DP and PT pulses palpable 2/4. Temperature gradient warm to cool on LLE. CFT < 3 sec. DERM: Superficial ulceration noted to dorsal aspect of right 1st MTPJ measuring approx 0.8 cm in in length. Periwound area is darkly discolored. No purulent discharge noted upon pressure to wound. No malodor, no fluctuance, no undermining, no probe to bone. Ulcer noted to the posterior aspect of the left heel that measure approximately 0.6 cm by 0.3 cm that probes to tendon, with a fibrotic base, no malodor, no drainage noted. Neuro: Protective sensation grossly intact B/L Ortho: Mild tenderness on palpation to left dorsum foot and posterior heel ulcer - Neurological Exam Neurological exam: Alert, Oriented x3 - Psychiatric Exam Psychiatric exam: Normal Affect, Normal Mood Results - Vital Signs Recent Vital Signs: Last Vital Signs Temp 97.8 F 04/25/17 07:56 Pulse 67 04/25/17 07:56 Resp 20 04/25/17 07:56 BP 110/74 04/25/17 07:56 Pulse Ox 96 04/25/17 07:56 - Labs Result Diagrams: 04/24/17 12:30 04/24/17 12:30 Labs: Laboratory Results - last 24 hr 04/24/17 04/24/17 04/24/17 12:30 12:30 17:27 WBC 9.3 RBC 4.43 Hgb 12.5 Hct 36.9 MCV 83.3 D MCH 28.3 MCHC 34.0 RDW 14.5 Plt Count 293 MPV 9.7 Neut % (Auto) 78.3 H Lymph % (Auto) 16.2 L [place] % (Auto) 4.7 Eos % (Auto) 0.4 Baso % (Auto) 0.4 Neut # (Auto) 7.3 H Lymph # (Auto) 1.5 [place] # (Auto) 0.4 Eos # (Auto) 0.0 Baso # (Auto) 0.0 Sodium 138 Potassium 3.9 Chloride 100 Carbon Dioxide 26 Anion Gap 16 BUN 10 Creatinine 0.5 L Est GFR ( Amer) > 60 Est GFR (Non-Af Amer) > 60 Random Glucose 102 Calcium 9.4 Total Bilirubin 0.5 AST 23 ALT 26 Alkaline Phosphatase 80 Total Protein 7.0 Albumin 4.0 Globulin 3.0 Albumin/Globulin Ratio 1.4 Urine Color Yellow Urine Clarity Hazy Urine pH 7.0 Ur Specific [place] 1.011 Urine Protein Negative Urine Glucose (UA) Normal Urine Ketones Negative Urine Blood Negative Urine Nitrate Negative Urine Bilirubin Negative Urine Urobilinogen Normal Ur Leukocyte Esterase 3+ H Urine WBC (Auto) 77 H Urine RBC (Auto) 2 Ur Squamous Epith Cells 18 H Ur Transition Epith Cell 1 Urine Bacteria Occ H Assessment & Plan - Assessment and Plan (Free Text) Assessment: 56 year old female with left foot dorsal ulcer and posterior heel ulcer Plan: patient examined and evaluated with attending, Dr. Lozoya chart, labs,vitals reviewed;afebrile, absent leukocytosis sed rate ordered left foot dressed with perioxide 4x4s, abd, dsd bactroban ordered ID consulted, recs appreciated podiatry will continue to follow patient while in house
--- NOTE | 2017-04-25 12:29 | CON ---
DATE: 04/25/2017 REQUESTING PHYSICIAN: Dr. Dowling. HISTORY OF PRESENT ILLNESS: This is a 56-year-old [place] female well know to me, she had a prior hallux abducto valgus repair 2 months prior and then she was transferred down to [facility] where upon visiting her on numerous occasions, she was doing well. She had a little dorsal dehiscence which closed at the last visit last week in [facility]. I see her this week with increased cellulitis and dehiscence on the dorsal aspect of the surgical site. At that time, I suggested and urged that the patient be admitted for IV antibiotics for which she has been. Due to the fact that there is prior surgical intervention at the site, underlying osteomyelitis cannot be ruled out. Imaging studies will be difficult to ascertain. Hold of bone biopsy at this time. Suggest ID consult. The patient is refusing any prolonged IV antibiotic therapy at this time. Await ID consults for recommendation of oral antibiotic regimen. I still; however, feel that the patient would benefit maximally by some prolong IV antibiotics in a subacute facility. Angel Coelho DPM cc:
--- NOTE | 2017-04-25 17:54 | CP.PCM.CON ---
History of Present Illness - History of Present Illness History of Present Illness: INFECTIOUS DISEASE CONSULTS; HPI; 56-year-old female with past medical history of MS was admitted to the ER by her PMD for IV antibiotics of the right foot infection. Patient had right foot HULLEX valgus correction in January 2017 at [facility]. Patient was then transferred to subacute rehabilitation. She was seen by Dr. CANTRELL-her supply technician regarding her left foot wound which was erythematous and the incision site had dehisced. Patient states she has been doing her dressings daily at home. Patient denies any fever or chills, nausea vomiting, dizziness headache or any other associated symptoms or complaints. Patient denies any pain to the site. X-ray 04/24/17 right foot in ER showed postoperative and post traumatic changes first ray. Diffuse circumferential soft tissue swelling consistent with cellulitis. No cortical destructive changes seen. INFECTIOUS DISEASE CONSULTATION REQUESTED BY pmd FOR CELLULITIS RIGHT FOOT WHICH IS SWOLLEN AND ERYTHEMATOUS. PATIENT STARTED ON iv ZOSYN 3.375 Q 8 HOURLY AND iv VANCOMYCIN 1 G EVERY 24 HOURLY.04/24/17. PMH: Arthritis, Hypercholesterolemia, Multiple Sclerosis - [facility] Procedures DRAINAGE OF URETHRA WITH DRAINAGE DEVICE, ENDO (10/19/15) EXTRACTION OF LEFT FOOT SKIN, EXTERNAL APPROACH (06/26/16) INSERTION OF INFUSION DEV INTO SUP VENA CAVA, PERC APPROACH (12/26/16) MEASUREMENT OF URINARY PRESSURE, VIA OPENING (10/19/15) PLAIN RADIOGRAPHY OF BLADDER AND URETHRA (10/19/15) Family History: States: No Known Family Hx - Social History Hx Tobacco Use: No Hx Alcohol Use: No Hx Substance Use: No - Immunization History Hx Tetanus Toxoid Vaccination: No Hx Influenza Vaccination: No Hx Pneumococcal Vaccination: No ALLERGIES; NKA. Review of Systems - Constitutional Constitutional: absent: Chills, Fever - EENT Eyes: absent: Change in Vision - Cardiovascular Cardiovascular: absent: Chest Pain, Dyspnea - Respiratory Respiratory: absent: Cough - Gastrointestinal Gastrointestinal: absent: Abdominal Pain, Constipation, Diarrhea - Genitourinary Genitourinary: absent: Dysuria, Freq UTI - Integumentary Integumentary: Skin Ulcer (RT.HULLUX ULCER DRY, RT HEEL ULCER.RIGHT FOOT VALGUS DEFORMITY.) - Neurological Neurological: absent: Headaches - Hematologic/Lymphatic Hematologic: As Per HPI Past Patient History - Infectious Disease Hx of Infectious Diseases: None - Past Medical History & Family History Past Medical History?: Yes - Past Social History Smoking Status: Never Smoked - CARDIAC Hx Hypercholesterolemia: Yes - NEUROLOGICAL Hx Multiple Sclerosis: Yes - INTEGUMENTARY Hx Dermatological Problems: Yes Other/Comment: HX: 12/26/16-CELLULITIS AND INFECTED RIGHT TOE BUNION - MUSCULOSKELETAL/RHEUMATOLOGICAL Hx Arthritis: Yes Hx Falls: Yes - GASTROINTESTINAL Hx Gastrointestinal Disorders: Yes Hx Gastroesophageal Reflux: Yes - PSYCHIATRIC Hx Substance Use: No - SURGICAL HISTORY Hx Surgeries: No Other/Comment: HX:right arm fx; H/O right foot surgery. HX: 01/01/17-PICC LINE RIGHT BASILIC VEIN - ANESTHESIA Hx Anesthesia: No Hx Anesthesia Reactions: No Hx Malignant Hyperthermia: No Has any member of the family had a problem w/ anesthesia?: No Meds Allergies/Adverse Reactions: Allergies Allergy/AdvReac Type Severity Reaction Status Date / Time No Known Allergies Allergy Verified 04/24/17 10:50 - Medications Medications: Current Medications Acetaminophen (Tylenol 325mg Tab) 650 mg PO Q6 PRN PRN Reason: Pain, moderate (4-7) Last Admin: 04/25/17 09:03 Dose: 650 mg Baclofen (Lioresal) 10 mg PO TID [facility] Last Admin: 04/25/17 13:36 Dose: 10 mg Calcium/Vitamin D (Oscal-D 250 Mg-125 Units Tab) 1 tab PO DAILY [facility] Last Admin: 04/25/17 09:02 Dose: 1 tab Heparin Sodium (Porcine) (Heparin) 5,000 units SC Q12 [facility] Last Admin: 04/25/17 09:03 Dose: 5,000 units Piperacillin Sod/Tazobactam (Sod 3.375 gm/ Sodium Chloride) 100 mls @ 200 mls/ hr IVPB Q8H [facility] Last Admin: 04/25/17 13:36 Dose: 200 mls/hr Vancomycin/Sodium Chloride (Vancomycin 1 Gm/Ns 200 Ml) 1 gm in 200 mls @ 133 mls/hr IVPB Q24H [facility] Stop: 04/30/17 00:01 Last Admin: 04/24/17 23:54 Dose: 133 mls/hr Multivitamins (Hexavitamin) 1 tab PO DAILY [facility] Last Admin: 04/25/17 09:03 Dose: 1 tab Mupirocin (Bactroban Ointment) 0 gm TOP BID [facility] Last Admin: 04/25/17 17:36 Dose: 1 applic Mbgxs-0-Oevq Ethyl Esters (Lovaza) 1 gm PO BID [facility] Last Admin: 04/25/17 17:36 Dose: 1 gm Pneumococcal Polyvalent Vaccine (Pneumovax 23 Vaccine) 0.5 ml IM .ONCE ONE Stop: 04/27/17 10:01 Rosuvastatin Calcium (Crestor) 5 mg PO [facility] Last Admin: 04/24/17 22:14 Dose: 5 mg Physical Exam - Constitutional Appears: No Acute Distress, Cachectic, Chronically Ill - Head Exam Head Exam: NORMAL INSPECTION - Eye Exam Eye Exam: EOMI, PERRL - ENT Exam ENT Exam: Normal Oropharynx - Neck Exam Neck exam: Positive for: Normal Inspection - Respiratory Exam Respiratory Exam: Clear to Auscultation Bilateral - Cardiovascular Exam Cardiovascular Exam: REGULAR RHYTHM, +S1, +S2 - GI/Abdominal Exam GI & Abdominal Exam: Normal Bowel Sounds, Soft. absent: Tenderness - Extremities Exam Extremities exam: Negative for: calf tenderness, pedal edema - Neurological Exam Neurological exam: Alert, CN II-XII Intact, Oriented x3 - Psychiatric Exam Psychiatric exam: Normal Mood - Skin Skin Exam: Normal Color, Warm - Additional Findings Additional findings: rt.foot in dressing. Results - Vital Signs Recent Vital Signs: Last Vital Signs Temp 98 F 04/25/17 15:38 Pulse 68 04/25/17 15:38 Resp 20 04/25/17 15:38 BP 99/66 L 04/25/17 15:38 Pulse Ox 96 04/25/17 15:38 - Labs Result Diagrams: 04/24/17 12:30 04/24/17 12:30 Labs: Laboratory Results - last 24 hr 04/25/17 13:51 ESR 25 H - Imaging and Cardiology x-ray right foot Status: Report reviewed by me Assessment & Plan (1) Cellulitis of foot Status: Acute (2) Foot ulcer Status: Acute (3) Multiple sclerosis Status: Acute - Assessment and Plan (Free Text) Assessment: IMPRESSION; RT. FOOT CELLULITIS & 1ST MTP-WOUND DEHISCENCE . RT. HEEL ULCER. SEVERE VALGUS DEFORMITY. MULTIPLE SCLEROSIS. (WHEELCHAIR-BOUND.) HYPERCHOLESTEROLEMIA. GERD. PLAN. PANCULTURE. ESR CRP CONTINUE iv ZOSYN 3.375 EVERY 8 HOURLY. 04/24/17 continue IV vancomycin 1 g every 24 hourly to 04/24/17. Follow-up Vanco trough prior to the fourth dose and keep between 10 and 20.. F/U RENAL FUNCTIONS/LFTS WEEKLY. FOLLOW-UP CULTURES TO ADJUST ANTIBIOTICS. LOCAL WOUND CARE PER PODIATRY. WILL DISCUSS WITH. PMD. WILL FOLLOW THE PATIENT AND MAKE ADJUSTMENTS NEEDED. THANK YOU.
[2017-04-25] MEDS: Vancomycin 1 gm/NS 200 ml 1 GM/200 ML BAG IVPB SCH (23:49)
[2017-04-26] MEDS: Piperacillin/Tazobact 3.375 GM in Sodium Chloride 0.9% 100 ML IVPB SCH ×3 (05:23→21:06)
--- NOTE | 2017-04-26 05:56 | HP ---
HISTORY OF PRESENT ILLNESS: This is a 56 years old [place] female with history of multiple sclerosis. She is bedridden. The patient was referred by section hand, Dr. Angel Coelho, on the day of admission to emergency room for admission for infection of the right foot. The patient is status post bunion repair surgery on the right foot. The patient denied to have any fever or chills at this point. Other, review of system is negative. ALLERGIES: NO KNOWN ALLERGIES. MEDICATIONS: As per MAR. PAST MEDICAL HISTORY: Multiple sclerosis, hypercholesterolemia, degenerative joint and spine disease. SOCIAL HISTORY: No history of smoking, EtOH, or substance abuse. FAMILY HISTORY: Noncontributory. PHYSICAL EXAMINATION: GENERAL: The patient is in bed, comfortable, not in any cardiopulmonary distress. VITAL SIGNS: Blood pressure 99/66, temperature 98, respiratory rate 20, and pulse 68. HEENT: Pupils equal and reactive to light. Normal-appearing mucosa of the conjunctivae, oropharynx, and nasal membrane mucosa. NECK: Supple. No JVD. No carotid bruit. No lymph node. No thyromegaly. CHEST/LUNGS: Bilateral symmetrical expansion. Good air exchange. No rales, no rhonchi. CARDIOVASCULAR SYSTEM: PMI not localized. S1 and S2. No additional sounds. ABDOMEN: Normoactive bowel sounds. No tenderness. No organomegaly. No masses. EXTREMITIES: No cyanosis, no clubbing, no edema. The patient has redness on the dorsal aspect of the right foot. MASH GRINDER: Alert, awake, and oriented x2. NEUROLOGIC: No neurological deficit could be appreciated except for bilateral lower extremity weakness. ASSESSMENT: 1. Cellulitis of the right foot, status post bunion repair. 2. Multiple sclerosis, the patient is bedridden. 3. Hypercholesterolemia. PLAN: Continue IV antibiotics. ID consults, Podiatry consult, and follow the recommendations. Resume the patient's home medicine. Ady Dowling MD
[2017-04-26] MEDS: Multiple Vitamins Tab PO SCH (10:24)
[2017-04-26] MEDS: Omega-3-Acid Ethyl Esters 1 GM Cap PO SCH ×2 (10:24→17:43)
[2017-04-26] MEDS: Calcium-Vit D 250 mg-125 Units Tab UD PO SCH (10:25)
--- NOTE | 2017-04-26 10:42 | CP.PCM.PN ---
Subjective - Date & Time of Evaluation Date of Evaluation: 04/26/17 Time of Evaluation: 10:42 - Subjective Subjective: Podiatry Progress note for Dr. Lozoya 56 year old female with was seen at bedside regarding left foot wound. She admits she has some pain to the dorsum of her foot. Denies any n/v/f/c/sob/cp. Objective - Vital Signs/Intake and Output Vital Signs (last 24 hours): Temp Pulse Resp BP Pulse Ox 98 F 61 20 105/72 95 04/26/17 00:00 04/26/17 00:00 04/26/17 00:00 04/26/17 00:00 04/26/17 00:00 Intake and Output: 04/26/17 04/26/17 06:59 18:59 Intake Total 450 Balance 450 - Medications Medications: Current Medications Acetaminophen (Tylenol 325mg Tab) 650 mg PO Q6 PRN PRN Reason: Pain, moderate (4-7) Last Admin: 04/25/17 18:23 Dose: 650 mg Baclofen (Lioresal) 10 mg PO TID [facility] Last Admin: 04/26/17 10:24 Dose: 10 mg Calcium/Vitamin D (Oscal-D 250 Mg-125 Units Tab) 1 tab PO DAILY [facility] Last Admin: 04/26/17 10:25 Dose: 1 tab Heparin Sodium (Porcine) (Heparin) 5,000 units SC Q12 [facility] Last Admin: 04/26/17 10:25 Dose: 5,000 units Piperacillin Sod/Tazobactam (Sod 3.375 gm/ Sodium Chloride) 100 mls @ 200 mls/ hr IVPB Q8H [facility] Last Admin: 04/26/17 05:23 Dose: 200 mls/hr Vancomycin/Sodium Chloride (Vancomycin 1 Gm/Ns 200 Ml) 1 gm in 200 mls @ 133 mls/hr IVPB Q24H [facility] Stop: 04/30/17 00:01 Last Admin: 04/25/17 23:49 Dose: 133 mls/hr Multivitamins (Hexavitamin) 1 tab PO DAILY [facility] Last Admin: 04/26/17 10:24 Dose: 1 tab Mupirocin (Bactroban Ointment) 0 gm TOP BID [facility] Last Admin: 04/26/17 10:30 Dose: 1 applic Mfyrg-8-Mxvi Ethyl Esters (Lovaza) 1 gm PO BID [facility] Last Admin: 04/26/17 10:24 Dose: 1 gm Pneumococcal Polyvalent Vaccine (Pneumovax 23 Vaccine) 0.5 ml IM .ONCE ONE Stop: 04/27/17 10:01 Rosuvastatin Calcium (Crestor) 5 mg PO [facility] Last Admin: 04/25/17 21:02 Dose: 5 mg - Labs Labs: 04/24/17 12:30 04/24/17 12:30 - Constitutional Appears: Well, Non-toxic, No Acute Distress - Extremities Exam Additional comments: Left lower extremity focused exam: Vasc: DP and PT pulses palpable 2/4. Temperature gradient warm to cool on LLE. CFT < 3 sec. DERM: Superficial ulceration noted to dorsal aspect of right 1st MTPJ measuring approx 0.8 cm in in length. Periwound area is darkly discolored. No purulent discharge noted upon pressure to wound. No malodor, no fluctuance, no undermining, no probe to bone. Ulcer noted to the posterior aspect of the left heel that measure approximately 0.6 cm by 0.3 cm that probes to tendon, with a fibrotic base, no malodor, no drainage noted. Neuro: Protective sensation grossly intact B/L Ortho: Mild tenderness on palpation to left dorsum foot and posterior heel ulcer - Neurological Exam Neurological Exam: Alert, Awake, Oriented x3 - Psychiatric Exam Psychiatric exam: Normal Affect, Normal Mood Assessment and Plan - Assessment and Plan (Free Text) Assessment: 56 year old female with left foot dorsal ulcer and posterior heel ulcer Plan: patient examined and evaluated Discussed with attending, Dr. Lozoya chart, labs,vitals reviewed;afebrile, absent leukocytosis ESR 25 left foot dressed with perioxide 4x4s, bactroban, abd, dsd cont iv abx per ID podiatry will continue to follow patient while in house
[2017-04-26] MEDS: Vancomycin 1 gm/NS 200 ml 1 GM/200 ML BAG IVPB SCH (23:59)
--- NOTE | 2017-04-27 01:47 | PN ---
DATE: 04/26/2017. SUBJECTIVE: The patient is seen today 04/26/2017. She is not in any cardiopulmonary distress. The patient is on IV antibiotics as per Infectious Disease oncology consultant. PHYSICAL EXAMINATION: VITAL SIGNS: Blood pressure 105/69, temperature 97.6, respiratory rate 20 and pulse 76. HEENT: Pupils equal, reactive to light. Normal-appearing mucosa of the conjunctivae, oropharynx and nasal membrane mucosa. NECK: Supple. No JVD. No carotid bruit. No lymph node. No thyromegaly. CHEST AND LUNGS: Bilateral symmetrical expansion. Good air exchange. No rales, no rhonchi. CARDIOVASCULAR SYSTEM: PMI not localized. S1, S2. No additional sounds. ABDOMEN: Normoactive bowel sounds. No tenderness. No organomegaly. No masses. EXTREMITIES: No cyanosis, no clubbing, no edema. QUOTATION CHECKER: Alert, awake, oriented x2 and the patient has bilateral paraplegia secondary to multiple sclerosis. ASSESSMENT: 1. Cellulitis of the right lower extremity. 2. Multiple sclerosis. 3. Hypercholesterolemia. PLAN: Continue current IV antibiotics and current medications. Ady Dowling MD
[2017-04-27] MEDS: Piperacillin/Tazobact 3.375 GM in Sodium Chloride 0.9% 100 ML IVPB SCH ×3 (05:12→21:36)
[2017-04-27 06:19] LABS: HEMOGLOBIN 11.9 g/dL (11.0-16.0); MEAN CELL VOLUME 83.3 fL (81.0-99.0); MEAN CORPUSCULAR HEMOGLOBIN 27.9 pg (27.0-31.0); MEAN CORPUSCULAR HGB CONC 33.5 g/dL (33.0-37.0); MEAN PLATELET VOLUME 9.7 fL (7.2-11.7); RBC 4.26 Mil/uL (3.80-5.20); RED CELL DISTRIBUTION WIDTH 14.7 % (11.5-14.5); WHITE BLOOD COUNT 7.5 K/uL (4.8-10.8)
[2017-04-27 06:42] LABS: BLOOD UREA NITROGEN 12 mg/dL (7-17); CALCIUM 8.4 mg/dl (8.6-10.4); GFR AFRICAN-AMERICAN > 60; GFR NON-AFRICAN AMERICAN > 60
[2017-04-27] MEDS ORDERED: Pneumococcal 23-Valent Vaccine IM ONE (10:00)
[2017-04-27] MEDS: Multiple Vitamins Tab PO SCH (10:12)
[2017-04-27] MEDS: Calcium-Vit D 250 mg-125 Units Tab UD PO SCH (10:12)
[2017-04-27] MEDS: Omega-3-Acid Ethyl Esters 1 GM Cap PO SCH ×2 (10:12→18:52)
--- NOTE | 2017-04-27 13:42 | CP.PCM.PN ---
Subjective - Date & Time of Evaluation Date of Evaluation: 04/27/17 Time of Evaluation: 10:00 - Subjective Subjective: Podiatry Progress Note for Dr. Lozoya 56 y.o female seen and evaluated for foot and heel wound. Patient is seen resting comfortably in bed, in NAD, and AA0x3. Patient denies overnight acute events. Patient reports the same pain to the foot. Denies n/v/sob/cp/chills/f. No new complaints Objective - Vital Signs/Intake and Output Vital Signs (last 24 hours): Temp Pulse Resp BP Pulse Ox 97.5 F L 65 20 106/69 100 04/27/17 08:29 04/27/17 08:29 04/27/17 08:29 04/27/17 08:29 04/27/17 08:29 Intake and Output: 04/27/17 04/27/17 06:59 18:59 Intake Total 450 Balance 450 - Medications Medications: Current Medications Acetaminophen (Tylenol 325mg Tab) 650 mg PO Q6 PRN PRN Reason: Pain, moderate (4-7) Last Admin: 04/27/17 10:23 Dose: 650 mg Baclofen (Lioresal) 10 mg PO TID [facility] Last Admin: 04/27/17 13:02 Dose: 10 mg Calcium/Vitamin D (Oscal-D 250 Mg-125 Units Tab) 1 tab PO DAILY [facility] Last Admin: 04/27/17 10:12 Dose: 1 tab Heparin Sodium (Porcine) (Heparin) 5,000 units SC Q12 [facility] Last Admin: 04/27/17 10:12 Dose: 5,000 units Piperacillin Sod/Tazobactam (Sod 3.375 gm/ Sodium Chloride) 100 mls @ 200 mls/ hr IVPB Q8H [facility] Last Admin: 04/27/17 05:12 Dose: 200 mls/hr Vancomycin/Sodium Chloride (Vancomycin 1 Gm/Ns 200 Ml) 1 gm in 200 mls @ 133 mls/hr IVPB Q24H [facility] Stop: 04/30/17 00:01 Last Admin: 04/26/17 23:59 Dose: 133 mls/hr Multivitamins (Hexavitamin) 1 tab PO DAILY [facility] Last Admin: 04/27/17 10:12 Dose: 1 tab Mupirocin (Bactroban Ointment) 0 gm TOP BID [facility] Last Admin: 04/27/17 10:13 Dose: 1 applic Bkhag-2-Sdqx Ethyl Esters (Lovaza) 1 gm PO BID [facility] Last Admin: 04/27/17 10:12 Dose: 1 gm Rosuvastatin Calcium (Crestor) 5 mg PO HS [facility] Last Admin: 04/26/17 21:05 Dose: 5 mg - Labs Labs: 04/27/17 06:11 04/27/17 06:11 - Constitutional Appears: Well, Non-toxic, No Acute Distress - Extremities Exam Extremities Exam: absent: Calf Tenderness Additional comments: Right lower extremity focused exam: Vasc: DP and PT pulses palpable 2/4. Temperature gradient warm to cool on LE. CFT < 3 sec. DERM: Superficial ulceration noted to dorsal aspect of right 1st MTPJ measuring approx 0.8 cm in in length. Periwound area is darkly discolored. No purulent discharge noted upon pressure to wound. No malodor, no fluctuance, no undermining, no probe to bone. Ulcer noted to the posterior aspect of the right heel that measure approximately 0.6 cm by 0.3 cm that probes to tendon, with a fibrotic base, no malodor, no drainage noted. Neuro: Protective sensation grossly intact Ortho: Mild tenderness on palpation to right dorsum foot and posterior heel ulcer - Neurological Exam Neurological Exam: Alert, Awake, Oriented x3 - Psychiatric Exam Psychiatric exam: Normal Affect, Normal Mood Assessment and Plan - Assessment and Plan (Free Text) Assessment: 56 year old female with left foot dorsal ulcer and posterior heel ulcer Plan: Patient examined and evaluated Discussed with attending, Dr. Lozoya Chart, labs,vitals reviewed: afebrile, absent leukocytosis ESR 25 Right foot dressed with perioxide 4x4s, bactroban, abd, dsd Cont IV abx per ID Zosyn and Vancomycin R foot culture 22:57 04/24/17 - preliminary gram positive cocci, gram negative amanda (moderate growth) R foot culture 21:44 04/24/17- preliminary s. aureus (heavy growth) Podiatry will continue to follow patient while in house
[2017-04-28] MEDS: Vancomycin 1 gm/NS 200 ml 1 GM/200 ML BAG IVPB SCH (00:01)
[2017-04-28] MEDS: Piperacillin/Tazobact 3.375 GM in Sodium Chloride 0.9% 100 ML IVPB SCH ×3 (05:04→21:33)
[2017-04-28] MEDS: Multiple Vitamins Tab PO SCH (09:49)
[2017-04-28] MEDS: Omega-3-Acid Ethyl Esters 1 GM Cap PO SCH ×2 (09:50→17:43)
[2017-04-28] MEDS: Calcium-Vit D 250 mg-125 Units Tab UD PO SCH (09:51)
--- NOTE | 2017-04-28 11:18 | CP.PCM.PN ---
Subjective - Date & Time of Evaluation Date of Evaluation: 04/28/17 Time of Evaluation: 09:45 - Subjective Subjective: Podiatry Progress Note for Dr. Lozoya 56 y.o female seen and evaluated for right foot and heel wound. Patient is seen resting comfortably in bed, in NAD, and AA0x3. Patient denies overnight acute events. Patient reports the same pain to the foot. Denies n/v/sob/cp/chills/f. No new complaints Objective - Vital Signs/Intake and Output Vital Signs (last 24 hours): Temp Pulse Resp BP Pulse Ox 97.7 F 69 20 114/73 96 04/28/17 08:56 04/28/17 08:56 04/28/17 08:56 04/28/17 08:56 04/28/17 08:56 Intake and Output: 04/28/17 04/28/17 06:59 18:59 Intake Total 1120 Balance 1120 - Medications Medications: Current Medications Acetaminophen (Tylenol 325mg Tab) 650 mg PO Q6 PRN PRN Reason: Pain, moderate (4-7) Last Admin: 04/27/17 18:50 Dose: 650 mg Baclofen (Lioresal) 10 mg PO TID [facility] Last Admin: 04/28/17 09:50 Dose: 10 mg Calcium/Vitamin D (Oscal-D 250 Mg-125 Units Tab) 1 tab PO DAILY [facility] Last Admin: 04/28/17 09:51 Dose: 1 tab Piperacillin Sod/Tazobactam (Sod 3.375 gm/ Sodium Chloride) 100 mls @ 200 mls/ hr IVPB Q8H [facility] Last Admin: 04/28/17 05:04 Dose: 200 mls/hr Vancomycin/Sodium Chloride (Vancomycin 1 Gm/Ns 200 Ml) 1 gm in 200 mls @ 133 mls/hr IVPB Q24H [facility] Stop: 04/30/17 00:01 Last Admin: 04/28/17 00:01 Dose: 133 mls/hr Multivitamins (Hexavitamin) 1 tab PO DAILY [facility] Last Admin: 04/28/17 09:49 Dose: 1 tab Mupirocin (Bactroban Ointment) 0 gm TOP BID [facility] Last Admin: 04/28/17 09:53 Dose: 1 applic Ywpoe-9-Rund Ethyl Esters (Lovaza) 1 gm PO BID [facility] Last Admin: 04/28/17 09:50 Dose: 1 gm Rosuvastatin Calcium (Crestor) 5 mg PO HS [facility] Last Admin: 04/27/17 21:42 Dose: 5 mg - Labs Labs: 04/27/17 06:11 04/27/17 06:11 - Constitutional Appears: Well, Non-toxic, No Acute Distress - Extremities Exam Extremities Exam: absent: Calf Tenderness Additional comments: Right lower extremity focused exam: Vasc: DP and PT pulses palpable 2/4. Temperature gradient warm to cool on LE. CFT < 3 sec. DERM: Superficial ulceration noted to dorsal aspect of right 1st MTPJ measuring approx 0.8 cm in in length. Periwound area is darkly discolored. No purulent discharge noted upon pressure to wound. No malodor, no fluctuance, no undermining, no probe to bone. Ulcer noted to the posterior aspect of the right heel that measure approximately 0.6 cm by 0.3 cm that probes to tendon, with a fibrotic base, no malodor, no drainage noted. Neuro: Protective sensation grossly intact Ortho: Mild tenderness on palpation to right dorsum foot and posterior heel ulcer - Neurological Exam Neurological Exam: Alert, Awake, Oriented x3 - Psychiatric Exam Psychiatric exam: Normal Affect, Normal Mood Assessment and Plan - Assessment and Plan (Free Text) Assessment: 56 year old female with Right foot dorsal ulcer and posterior heel ulcer Plan: Patient examined and evaluated Discussed with attending, Dr. Lozoya Chart, labs,vitals reviewed: afebrile, absent leukocytosis ESR 25 Right foot dressed with perioxide 4x4s, bactroban, abd, dsd Cont IV abx per ID Zosyn and Vancomycin R foot culture 22:57 04/24/17 - Staphylococcus Aureus, Citrobacter Freundi R foot culture 21:44 04/24/17- Staphylococcus Aureus Podiatry will continue to follow patient while in house Will provide local wound care
[2017-04-28] MEDS: Tmp-Smz 800 mg-160 mg DS Tab PO SCH (17:43)
[2017-04-28] MEDS: Vitamins A & D Oint UD Foilpak TOP SCH (23:16)
--- NOTE | 2017-04-28 23:22 | PN ---
DATE: 04/27/2017. SUBJECTIVE: She was not in any cardiopulmonary distress. The patient was on IV antibiotics treating cellulitis of the right leg. PHYSICAL EXAMINATION: VITAL SIGNS: Blood pressure 106/69, temperature 97.5, respiratory rate 20 and pulse 65. HEENT: Pupils equal, reactive to light. Normal-appearing mucosa of the conjunctivae, oropharynx and nasal membrane mucosa. NECK: Supple. No JVD. No carotid bruit. No lymph node. No thyromegaly. CHEST AND LUNGS: Bilateral symmetrical expansion. Good air exchange. No rales, no rhonchi. CARDIOVASCULAR SYSTEM: PMI not localized. S1 and S2. No additional sounds. ABDOMEN: Normoactive bowel sounds. No tenderness. No organomegaly. No masses. EXTREMITIES: No cyanosis, no clubbing, no edema. MANAGER PROGRESSIVE CARE: Alert, awake, oriented x2. The patient has bilateral lower extremity weakness and right upper extremity weakness. ASSESSMENT: 1. Cellulitis of the right lower extremity at the site of previous bunion repair. 2. Multiple sclerosis bedridden. 3. Hypercholesterolemia. PLAN: Continue current IV antibiotics and follow ID recommendations. Ady Dowling MD
--- NOTE | 2017-04-28 23:27 | PN ---
DATE: 04/28/2017. SUBJECTIVE: The patient is seen today 04/28/2017. She is on IV antibiotics treating cellulitis of the right lower extremities. PHYSICAL EXAMINATION: VITAL SIGNS: Blood pressure 114/73, temperature 97.7, respiratory rate 20 and pulse 69. HEENT: Pupils equal, reactive to light. Normal-appearing mucosa of the conjunctivae, oropharynx and nasal membrane mucosa. NECK: Supple. No JVD. No carotid bruit. No lymph node. No thyromegaly. CHEST AND LUNGS: Bilateral symmetrical expansion. Good air exchange. No rales, no rhonchi. CARDIOVASCULAR SYSTEM: PMI not localized. S1, S2. No additional sounds. ABDOMEN: Normoactive bowel sounds. No tenderness. No organomegaly. No masses. EXTREMITIES: No cyanosis, no clubbing, no edema. CATTLE STICKER: Alert, awake, oriented x2 and the patient has bilateral lower extremity weakness and right upper extremity weakness. ASSESSMENT: 1. Cellulitis of the right lower extremity. 2. Multiple sclerosis with bilateral lower extremity weakness and paralysis of the right upper extremity. 3. Hypercholesterolemia. PLAN: Continue current IV antibiotics and follow ID recommendations and Podiatry recommendations. Ady Dowling MD
[2017-04-29] MEDS: Piperacillin/Tazobact 3.375 GM in Sodium Chloride 0.9% 100 ML IVPB SCH ×2 (06:15→14:59)
[2017-04-29 06:47] LABS: BASO # 0.1 K/uL (0.0-0.2); BASO % 0.7 % (0.0-2.0); EOS # 0.2 K/uL (0.0-0.7); EOS % 2.5 % (0.0-4.0); HEMOGLOBIN 13.2 g/dL (11.0-16.0); LYMPH # 2.6 K/uL (1.0-4.3); LYMPH % 34.7 % (20.0-40.0); MEAN CELL VOLUME 83.6 fL (81.0-99.0); MEAN CORPUSCULAR HEMOGLOBIN 28.2 pg (27.0-31.0); MEAN CORPUSCULAR HGB CONC 33.7 g/dL (33.0-37.0); MEAN PLATELET VOLUME 9.9 fL (7.2-11.7); MONO # 0.5 K/uL (0.0-0.8); MONO % 7.2 % (0.0-10.0); NEUT # 4.1 K/uL (1.8-7.0); NEUT % 54.9 % (50.0-75.0); NRBC % 0.1 % (0.0-2.0); RBC 4.69 Mil/uL (3.80-5.20); RED CELL DISTRIBUTION WIDTH 14.3 % (11.5-14.5); WHITE BLOOD COUNT 7.4 K/uL (4.8-10.8)
[2017-04-29 07:02] LABS: ALB/GLOB RATIO 1.3 (1.0-2.1); ALT/SGPT 58 U/L (9-52); AST/SGOT 54 U/L (14-36); BLOOD UREA NITROGEN 16 mg/dL (7-17); CALCIUM 9.2 mg/dl (8.6-10.4); GFR AFRICAN-AMERICAN > 60; GFR NON-AFRICAN AMERICAN > 60
--- NOTE | 2017-04-29 09:13 | CP.PCM.PN ---
Subjective - Date & Time of Evaluation Date of Evaluation: 04/29/17 Time of Evaluation: 09:13 - Subjective Subjective: Podiatry Progress Note for Dr. Lozoya 56 year old female seen and evaluated for right foot and heel wound. Patient is seen resting comfortably in bed, in NAD, and AA0x3. Patient denies overnight acute events. She currently denies any n/v/f/c/sob/cp. Objective - Vital Signs/Intake and Output Vital Signs (last 24 hours): Temp Pulse Resp BP Pulse Ox 97.7 F 72 20 116/81 97 04/29/17 08:00 04/29/17 08:00 04/29/17 08:00 04/29/17 08:00 04/29/17 08:00 Intake and Output: 04/29/17 04/29/17 06:59 18:59 Intake Total 920 Balance 920 - Medications Medications: Current Medications Acetaminophen (Tylenol 325mg Tab) 650 mg PO Q6 PRN PRN Reason: Pain, moderate (4-7) Last Admin: 04/28/17 21:36 Dose: 650 mg Baclofen (Lioresal) 10 mg PO TID [facility] Last Admin: 04/28/17 17:43 Dose: 10 mg Calcium/Vitamin D (Oscal-D 250 Mg-125 Units Tab) 1 tab PO DAILY [facility] Last Admin: 04/28/17 09:51 Dose: 1 tab Heparin Sodium (Porcine) (Heparin) 5,000 units SC Q12H [facility] Last Admin: 04/28/17 23:16 Dose: 5,000 units Piperacillin Sod/Tazobactam (Sod 3.375 gm/ Sodium Chloride) 100 mls @ 200 mls/ hr IVPB Q8H [facility] Last Admin: 04/29/17 06:15 Dose: 200 mls/hr Vancomycin/Sodium Chloride (Vancomycin 1 Gm/Ns 200 Ml) 1 gm in 200 mls @ 166.7 mls/hr IVPB Q24H [facility] Stop: 05/04/17 10:01 Multivitamins (Hexavitamin) 1 tab PO DAILY [facility] Last Admin: 04/28/17 09:49 Dose: 1 tab Mupirocin (Bactroban Ointment) 0 gm TOP BID [facility] Last Admin: 04/28/17 21:40 Dose: 1 applic Blfgd-9-Qmtp Ethyl Esters (Lovaza) 1 gm PO BID [facility] Last Admin: 04/28/17 17:43 Dose: 1 gm Rosuvastatin Calcium (Crestor) 5 mg PO HS [facility] Last Admin: 04/28/17 21:35 Dose: 5 mg Trimethoprim/Sulfamethoxazole (Bactrim Ds Tab) 1 tab PO BID [facility] Last Admin: 04/28/17 17:43 Dose: 1 tab Vitamin A (Vitamin A & D Oint Ud Foilpak) 1 ea TOP BID [facility] Last Admin: 04/28/17 23:16 Dose: 1 ea - Labs Labs: 04/29/17 06:34 04/29/17 06:34 - Constitutional Appears: Well, Non-toxic, No Acute Distress - Extremities Exam Additional comments: Right lower extremity focused exam: Vasc: DP and PT pulses palpable 2/4. Temperature gradient warm to cool on LE. CFT < 3 sec. DERM: Superficial ulceration noted to dorsal aspect of right 1st MTPJ measuring approx 0.8 cm in length. Periwound area is darkly discolored. No purulent discharge noted upon pressure to wound. No malodor, no fluctuance, no undermining, no probe to bone. Ulcer noted to the posterior aspect of the right heel that measure approximately 0.6 cm by 0.3 cm that probes to tendon, with a fibrotic base, no malodor, no drainage noted. Neuro: Protective sensation grossly intact Ortho: Mild tenderness on palpation to right dorsum foot and posterior heel ulcer - Neurological Exam Neurological Exam: Alert, Awake, Oriented x3 - Psychiatric Exam Psychiatric exam: Normal Affect, Normal Mood Assessment and Plan - Assessment and Plan (Free Text) Assessment: 56 year old female with Right foot dorsal ulcer and posterior heel ulcer Plan: Patient examined and evaluated Discussed with attending, Dr. Lozoya Chart, labs,vitals reviewed: afebrile, WBC 7.4 ESR 25 (04/25/17) Right foot dressed with perioxide 4x4s, bactroban, abd, dsd Cont IV abx per R foot culture 22:57 04/24/17 - Staphylococcus Aureus, Citrobacter Freundi R foot culture 21:44 04/24/17- Staphylococcus Aureus Patient to follow up with Dr. Lozoya upon discharge Podiatry will continue to follow patient while in house
[2017-04-29] MEDS: Tmp-Smz 800 mg-160 mg DS Tab PO SCH ×3 (09:52→17:51)
[2017-04-29] MEDS ORDERED: Vancomycin 1 gm/NS 200 ml 1 GM/200 ML BAG IVPB SCH (10:00)
[2017-04-29] MEDS: Vitamins A & D Oint UD Foilpak TOP SCH ×2 (10:26→17:51)
[2017-04-29] MEDS: Multiple Vitamins Tab PO SCH (10:26)
[2017-04-29] MEDS: Omega-3-Acid Ethyl Esters 1 GM Cap PO SCH ×2 (10:26→17:50)
[2017-04-29] MEDS: Calcium-Vit D 250 mg-125 Units Tab UD PO SCH (10:27)
--- NOTE | 2017-04-29 13:27 | CP.PCM.PN ---
Subjective - Date & Time of Evaluation Date of Evaluation: 04/29/17 Time of Evaluation: 13:27 - Subjective Subjective: events noted. pt.resting comfortably. Right foot dressing in place. Podiatry follow-up noted. labs reviewed R foot culture 22:57 04/24/17 - Staphylococcus Aureus, Citrobacter Freundi R foot culture 21:44 04/24/17- Staphylococcus Aureus s- Bactrim. CASE DISCUSSED WITH THE STAFF. PT CAN BE DC TO [facility] CONTINUE iv ZOSYN , DECREASE DOSE TO 2.25GM EVERY 8 HOURLY FOR 7 DAYS PO BACTRIM 1DS BID X 2WEEKS. F/U RENAL FUNCTIONS CLOSELY. F/U LFTS [facility]. Objective - Vital Signs/Intake and Output Vital Signs (last 24 hours): Temp Pulse Resp BP Pulse Ox 97.7 F 72 20 116/81 97 04/29/17 08:00 04/29/17 08:00 04/29/17 08:00 04/29/17 08:00 04/29/17 08:00 Intake and Output: 04/29/17 04/29/17 06:59 18:59 Intake Total 920 Balance 920 - Medications Medications: Current Medications Acetaminophen (Tylenol 325mg Tab) 650 mg PO Q6 PRN PRN Reason: Pain, moderate (4-7) Last Admin: 04/29/17 09:23 Dose: 650 mg Baclofen (Lioresal) 10 mg PO TID [facility] Last Admin: 04/29/17 10:27 Dose: 10 mg Calcium/Vitamin D (Oscal-D 250 Mg-125 Units Tab) 1 tab PO DAILY [facility] Last Admin: 04/29/17 10:27 Dose: 1 tab Heparin Sodium (Porcine) (Heparin) 5,000 units SC Q12H [facility] Last Admin: 04/29/17 10:25 Dose: 5,000 units Piperacillin Sod/Tazobactam (Sod 3.375 gm/ Sodium Chloride) 100 mls @ 200 mls/ hr IVPB Q8H [facility] Last Admin: 04/29/17 06:15 Dose: 200 mls/hr Multivitamins (Hexavitamin) 1 tab PO DAILY [facility] Last Admin: 04/29/17 10:26 Dose: 1 tab Mupirocin (Bactroban Ointment) 0 gm TOP BID [facility] Last Admin: 02/26/18 09:52 Dose: Not Given Qacyo-6-Ilzn Ethyl Esters (Lovaza) 1 gm PO BID [facility] Last Admin: 04/29/17 10:26 Dose: 1 gm Rosuvastatin Calcium (Crestor) 5 mg PO HS [facility] Last Admin: 04/28/17 21:35 Dose: 5 mg Trimethoprim/Sulfamethoxazole (Bactrim Ds Tab) 1 tab PO BID [facility] Last Admin: 04/29/17 09:52 Dose: Not Given Vitamin A (Vitamin A & D Oint Ud Foilpak) 1 ea TOP BID [facility] Last Admin: 04/29/17 10:26 Dose: 1 ea - Labs Labs: 04/29/17 06:34 04/29/17 06:34 - Constitutional Appears: No Acute Distress - Head Exam Head Exam: NORMAL INSPECTION - Eye Exam Eye Exam: EOMI, PERRL - ENT Exam ENT Exam: Normal Oropharynx - Neck Exam Neck Exam: Normal Inspection - Respiratory Exam Respiratory Exam: Clear to Ausculation Bilateral - Cardiovascular Exam Cardiovascular Exam: REGULAR RHYTHM, +S1, +S2 - Extremities Exam Extremities Exam: Pedal Edema ( Mild tenderness on palpation to right dorsum foot and posterior heel ulcer. DRESSING IN PLACE.), Tenderness. absent: Calf Tenderness - Neurological Exam Neurological Exam: Abnormal Gait (SEVERE VALGUS DEFORMITY.), Awake, Oriented x3 - Psychiatric Exam Psychiatric exam: Normal Mood - Skin Skin Exam: Normal Color, Warm Assessment and Plan (1) Cellulitis of foot Status: Acute (2) Foot ulcer Status: Acute (3) Multiple sclerosis Status: Acute - Assessment and Plan (Free Text) Assessment: IMPRESSION; RT. FOOT CELLULITIS & 1ST MTP-WOUND DEHISCENCE . RT. HEEL ULCER. +VE STAPH. AUREUS (MSSA ) SEVERE VALGUS DEFORMITY. MULTIPLE SCLEROSIS. HYPERCHOLESTEROLEMIA. GERD. PLAN. PATIENT HAS NO SUBACUTE REHABILITATION DAYS LEFT. wILL HAVE TO ADJUST TO BY MOUTH ANTIBIOTICS DISCUSSED WITH [employer] ADMINISTRATOR . THA IV ANTIBIOTICS ON DISCHARGE. PO AUGMENTIN 500 3 TIMES A DAY X10 DAYS. bY MOUTH BACTRIM 1SS PO BID X10 DAYS, PROBIOTIC BY MOUTH BACID ONE AT BEDTIME FOR 10 DAYS F/U RENAL FUNCTIONS/LFTS WEEKLY. LOCAL WOUND CARE PER PODIATRY. PATIENT WILL BE FOLLOWED BY PMD ON DISCHARGE. PLEASE CALL IF ANY QUESTIONS.
[2017-04-29] MEDS ORDERED: Piperacill/Tazo 2.25gm in Dex 2.25 GM/50 ML BAG IVPB SCH (15:00)
--- NOTE | 2017-04-30 03:33 | PN ---
DATE: 04/29/2017 SUBJECTIVE: The patient is seen today, 04/29/2017. She is still on IV antibiotics, treating cellulitis of the right lower extremity. PHYSICAL EXAMINATION: VITAL SIGNS: Blood pressure is 106/71, temperature 97.4, respiratory rate 20, and pulse 69. HEENT: Pupils equal, and reactive to light. Normal-appearing mucosa of the conjunctivae, oropharynx, and nasal membrane mucosa. NECK: Supple. No JVD. No carotid bruit. No lymph node. No thyromegaly. CHEST AND LUNGS: Bilateral symmetrical expansion. Good air exchange. No rales, no rhonchi. CARDIOVASCULAR SYSTEM: PMI not localized. S2, S2, no additional sounds. ABDOMEN: Normoactive bowel sounds. No tenderness. No organomegaly. No masses. EXTREMITIES: Decreased redness of the right foot. MECHANICAL FITTER: Alert, awake, and oriented x2 and the patient has bilateral lower extremity weakness and right upper extremity weakness secondary to multiple sclerosis. ASSESSMENT: 1. Cellulitis of the right lower extremity at the surgical site of bunion repair. 2. Multiple sclerosis with paraplegia and right upper extremity weakness, the patient is wheelchair-bound. 3. Hypercholesterolemia. PLAN: Continue current IV antibiotics and follow ID recommendations. Ady Dowling MD
[2017-04-30] MEDS: Omega-3-Acid Ethyl Esters 1 GM Cap PO SCH ×2 (10:35→17:40)
[2017-04-30] MEDS: Vitamins A & D Oint UD Foilpak TOP SCH ×2 (10:35→17:40)
[2017-04-30] MEDS: Calcium-Vit D 250 mg-125 Units Tab UD PO SCH (10:35)
[2017-04-30] MEDS: Tmp-Smz 800 mg-160 mg DS Tab PO SCH (10:35)
[2017-04-30] MEDS: Multiple Vitamins Tab PO SCH (10:35)
--- NOTE | 2017-04-30 10:58 | CP.PCM.PN ---
Subjective - Date & Time of Evaluation Date of Evaluation: 04/30/17 Time of Evaluation: 10:56 - Subjective Subjective: Podiatry Progress Note for Dr. Lozoya 56 year old female seen and evaluated for right foot and heel wound. Patient is seen resting comfortably in bed, in NAD, and AA0x3. Patient denies overnight acute events. Admits to some tenderness of her right foot and heel. She currently denies any n/v/f/c/sob/cp but admits to some diarrhea. Objective - Vital Signs/Intake and Output Vital Signs (last 24 hours): Temp Pulse Resp BP Pulse Ox 97.8 F 69 20 106/71 97 04/30/17 00:01 04/29/17 15:15 04/29/17 15:15 04/29/17 15:15 04/29/17 15:15 Intake and Output: 04/30/17 04/30/17 06:59 18:59 Intake Total 830 Balance 830 - Medications Medications: Current Medications Acetaminophen (Tylenol 325mg Tab) 650 mg PO Q6 PRN PRN Reason: Pain, moderate (4-7) Last Admin: 04/29/17 23:01 Dose: 650 mg Baclofen (Lioresal) 10 mg PO TID [facility] Last Admin: 04/30/17 10:35 Dose: 10 mg Calcium/Vitamin D (Oscal-D 250 Mg-125 Units Tab) 1 tab PO DAILY [facility] Last Admin: 04/30/17 10:35 Dose: 1 tab Heparin Sodium (Porcine) (Heparin) 5,000 units SC Q12H [facility] Last Admin: 04/30/17 10:35 Dose: 5,000 units Piperacillin Sod/Tazobactam (Sod 2.25 gm/ Sodium Chloride) 100 mls @ 100 mls/ hr IV Q8H [facility] Last Admin: 04/30/17 05:08 Dose: 100 mls/hr Multivitamins (Hexavitamin) 1 tab PO DAILY [facility] Last Admin: 04/30/17 10:35 Dose: 1 tab Mupirocin (Bactroban Ointment) 0 gm TOP BID [facility] Last Admin: 04/30/17 10:38 Dose: 1 applic [id number] Ethyl Esters (Lovaza) 1 gm PO BID [facility] Last Admin: 04/30/17 10:35 Dose: 1 gm Rosuvastatin Calcium (Crestor) 5 mg PO HS [facility] Last Admin: 04/29/17 22:33 Dose: 5 mg Saccharomyces Boulardii (Florastor) 250 mg PO BID DO Trimethoprim/Sulfamethoxazole (Bactrim Ds Tab) 1 tab PO BID [facility] Last Admin: 04/30/17 10:35 Dose: 1 tab Vitamin A (Vitamin A & D Oint Ud Foilpak) 1 ea TOP BID [facility] Last Admin: 04/30/17 10:35 Dose: 1 ea - Labs Labs: 04/29/17 06:34 04/29/17 06:34 - Constitutional Appears: Well, Non-toxic, No Acute Distress - Extremities Exam Additional comments: Right lower extremity focused exam: Vasc: DP and PT pulses palpable 2/4. Temperature gradient warm to cool on LE. CFT < 3 sec. DERM: Superficial ulceration noted to dorsal aspect of right 1st MTPJ measuring approx 0.8 cm in length. Periwound area is darkly discolored. No purulent discharge noted upon pressure to wound. No malodor, no fluctuance, no undermining, no probe to bone. Ulcer noted to the posterior aspect of the right heel that measure approximately 0.6 cm by 0.3 cm that probes to tendon, with a fibrotic base, no malodor, no drainage noted. Neuro: Protective sensation grossly intact Ortho: Mild tenderness on palpation to right dorsum foot and posterior heel ulcer - Neurological Exam Neurological Exam: Alert, Awake, Oriented x3 - Psychiatric Exam Psychiatric exam: Normal Affect, Normal Mood Assessment and Plan - Assessment and Plan (Free Text) Assessment: 56 year old female with Right foot dorsal ulcer and posterior heel ulcer Plan: Patient examined and evaluated Discussed with attending, Dr. Lozoya Chart, labs,vitals reviewed: afebrile, WBC 7.4 (04/29/17) ESR 25 (04/25/17) Right foot dressed with perioxide 4x4s, bactroban, abd, dsd Cont IV abx per ID R foot culture 22:57 04/24/17 - Staphylococcus Aureus, Citrobacter Freundi R foot culture 21:44 04/24/17- Staphylococcus Aureus Patient to follow up with Dr. Lozoya upon discharge Podiatry will continue to follow patient while in house
[2017-04-30] MEDS: Saccharomyces Boulardi 250 mg Cap PO SCH ×2 (11:12→17:40)
--- NOTE | 2017-04-30 15:00 | CP.PCM.PN ---
Subjective - Date & Time of Evaluation Date of Evaluation: 04/30/17 Time of Evaluation: 14:57 - Subjective Subjective: DISCUSSED PLAN FOR D/C WITH DR. POWERS. HE SAW PT THIS AFTERNOON AND PT C/O FREQUENT LOOSE BMS SINCE STARTING PO BACTRIM. PER DR. POWERS PT DOES NOT TOLERATE PO ABX WELL IN GENERAL. RECOMMENDING GRACE FOR 1 WEEK OF IV ZOSYN AND VANCO. DISCUSSED WITH SW AND CM; PT TO BE REFERRED TO [facility], WILL NEED AUTH; FOR PICC LINE INSERTION IN THE MORNING. IF SHE IS ACCEPTED TO [facility] SHE WILL BE D/C. PLAN IS OK WITH DR. COLLAZO. PT WILL CONTINUE ZOSYN 3.375 GM IV Q8 HOURS X7 MORE DAYS (START 05/01/17 AND LAST DOSE TO BE GIVEN DURING THE EVENING ON 05/08/17) AND VANCOMYCIN 1 GM IV DAILY X7 MORE DAYS (START 05/01/17 AND LAST DOSE TO BE GIVEN ON 05/08/17). PODIATRY RESIDENT, DR. OTTO, ALSO UPDATED WITH THE D/C PLAN. NO FURTHER ORDERS. Objective - Vital Signs/Intake and Output Vital Signs (last 24 hours): Temp Pulse Resp BP Pulse Ox 98.5 F 74 20 118/80 96 04/30/17 08:00 04/30/17 12:50 04/30/17 08:00 04/30/17 12:50 04/30/17 12:50 Intake and Output: 04/30/17 04/30/17 06:59 18:59 Intake Total 830 Balance 830 - Medications Medications: Current Medications Acetaminophen (Tylenol 325mg Tab) 650 mg PO Q6 PRN PRN Reason: Pain, moderate (4-7) Last Admin: 04/29/17 23:01 Dose: 650 mg Baclofen (Lioresal) 10 mg PO TID [facility] Last Admin: 04/30/17 13:54 Dose: 10 mg Calcium/Vitamin D (Oscal-D 250 Mg-125 Units Tab) 1 tab PO DAILY [facility] Last Admin: 04/30/17 10:35 Dose: 1 tab Heparin Sodium (Porcine) (Heparin) 5,000 units SC Q12H [facility] Last Admin: 04/30/17 10:35 Dose: 5,000 units Piperacillin Sod/Tazobactam (Sod 2.25 gm/ Sodium Chloride) 100 mls @ 100 mls/ hr IV Q8H [facility] Last Admin: 04/30/17 13:53 Dose: 100 mls/hr Multivitamins (Hexavitamin) 1 tab PO DAILY [facility] Last Admin: 04/30/17 10:35 Dose: 1 tab Mupirocin (Bactroban Ointment) 0 gm TOP BID [facility] Last Admin: 04/30/17 10:38 Dose: 1 applic [id number] Ethyl Esters (Lovaza) 1 gm PO BID [facility] Last Admin: 04/30/17 10:35 Dose: 1 gm Rosuvastatin Calcium (Crestor) 5 mg PO HS [facility] Last Admin: 04/29/17 22:33 Dose: 5 mg Saccharomyces Boulardii (Florastor) 250 mg PO BID [facility] Last Admin: 04/30/17 11:12 Dose: 250 mg Trimethoprim/Sulfamethoxazole (Bactrim Ds Tab) 1 tab PO BID [facility] Last Admin: 04/30/17 10:35 Dose: 1 tab Vitamin A (Vitamin A & D Oint Ud Foilpak) 1 ea TOP BID [facility] Last Admin: 04/30/17 10:35 Dose: 1 ea - Labs Labs: 04/29/17 06:34 04/29/17 06:34
[2017-04-30] MEDS ORDERED: Cholestyramine 4 gm/Pkt UD PO PRN (15:31)
[2017-04-30] MEDS: Vancomycin 1 gm/NS 200 ml 1 GM/200 ML BAG IVPB SCH (17:53)
--- NOTE | 2017-05-01 07:04 | PN ---
DATE: 04/30/2017. SUBJECTIVE: The patient is seen today April 30, 2017. She is not in any cardiopulmonary distress. The patient is on IV antibiotics treating cellulitis of the right lower extremity. PHYSICAL EXAMINATION: VITAL SIGNS: Blood pressure 108/75, temperature 97.2, respiratory rate 20 and pulse 80. HEENT: Pupils equal, reactive to light. Normal-appearing mucosa of the conjunctivae, oropharynx and nasal membrane mucosa. NECK: Supple. No JVD. No carotid bruit. No lymph node. No thyromegaly. CHEST AND LUNGS: Bilateral symmetrical expansion. Good air exchange. No rales, no rhonchi. CARDIOVASCULAR SYSTEM: PMI not localized. S1, S2. No additional sounds. ABDOMEN: Normoactive bowel sounds. No tenderness. No organomegaly. No masses. EXTREMITIES: No cyanosis, no clubbing, no edema. EARTH MOVING TECHNICIAN: Alert, awake, oriented x3. There is bilateral lower extremity weakness and right upper extremity weakness. ASSESSMENT: 1. Cellulitis of the right lower extremity. 2. Multiple sclerosis with bilateral lower extremity weakness. 3. Hypercholesterolemia. PLAN: Continue current IV antibiotics. We will hold the p.o. antibiotics as patient develops diarrhea. Discussed with case management for possible discharge to subacute rehab for completion of IV antibiotic therapy as per ID. Ady Dowling MD
[2017-05-01 07:28] LABS: HEMOGLOBIN 14.3 g/dL (11.0-16.0); MEAN CELL VOLUME 83.2 fL (81.0-99.0); MEAN CORPUSCULAR HEMOGLOBIN 28.8 pg (27.0-31.0); MEAN CORPUSCULAR HGB CONC 34.6 g/dL (33.0-37.0); MEAN PLATELET VOLUME 9.7 fL (7.2-11.7); RBC 4.98 Mil/uL (3.80-5.20); RED CELL DISTRIBUTION WIDTH 14.5 % (11.5-14.5)
[2017-05-01 07:34] LABS: BLOOD UREA NITROGEN 15 mg/dL (7-17); CALCIUM 9.8 mg/dl (8.6-10.4); GFR AFRICAN-AMERICAN > 60; GFR NON-AFRICAN AMERICAN > 60
[2017-05-01 09:01] VITALS: O2SAT 97
[2017-05-01] MEDS: Omega-3-Acid Ethyl Esters 1 GM Cap PO SCH ×2 (10:48→17:38)
[2017-05-01] MEDS: Vitamins A & D Oint UD Foilpak TOP SCH ×2 (10:48→17:38)
[2017-05-01] MEDS: Calcium-Vit D 250 mg-125 Units Tab UD PO SCH (10:48)
[2017-05-01] MEDS: Saccharomyces Boulardi 250 mg Cap PO SCH ×2 (10:48→17:38)
[2017-05-01] MEDS: Multiple Vitamins Tab PO SCH (10:48)
--- NOTE | 2017-05-01 11:22 | RAD ---
HISTORY: verify right PICC COMPARISON: 06/26/2016. FINDINGS: The right PICC line terminates at the cavoatrial junction. LUNGS: The lungs are clear. PLEURA: No significant pleural effusion identified, no pneumothorax apparent. CARDIOVASCULAR: Normal. OSSEOUS STRUCTURES: No significant abnormalities. VISUALIZED UPPER ABDOMEN: Normal. OTHER FINDINGS: None. IMPRESSION: Right PICC line terminates at the cavoatrial junction. No acute findings.
[2017-05-01] MEDS: Vancomycin 1 gm/NS 200 ml 1 GM/200 ML BAG IVPB SCH (16:28)
[2017-05-01 17:04] VITALS: BP 111/77; PULSE 71; TEMP 97.4
--- NOTE | 2017-05-01 17:17 | CP.PCM.PN ---
Subjective - Date & Time of Evaluation Date of Evaluation: 05/01/17 Time of Evaluation: 11:00 - Subjective Subjective: Alert orientedx3 , denies sob or chest pains. Objective - Vital Signs/Intake and Output Vital Signs (last 24 hours): Temp Pulse Resp BP Pulse Ox 97.4 F L 71 20 111/77 97 05/01/17 15:15 05/01/17 15:15 05/01/17 15:15 05/01/17 15:15 05/01/17 15:15 Intake and Output: 05/01/17 05/01/17 06:59 18:59 Intake Total 880 600 Balance 880 600 - Medications Medications: Current Medications Acetaminophen (Tylenol 325mg Tab) 650 mg PO Q6 PRN PRN Reason: Pain, moderate (4-7) Last Admin: 04/30/17 18:33 Dose: 650 mg Baclofen (Lioresal) 10 mg PO TID [facility] Last Admin: 05/01/17 14:15 Dose: 10 mg Calcium/Vitamin D (Oscal-D 250 Mg-125 Units Tab) 1 tab PO DAILY [facility] Last Admin: 05/01/17 10:48 Dose: 1 tab Cholestyramine Resin (Questran) 4 gm PO BID PRN PRN Reason: Diarrhea Heparin Sodium (Porcine) (Heparin) 5,000 units SC Q12H [facility] Last Admin: 05/01/17 10:48 Dose: 5,000 units Vancomycin/Sodium Chloride (Vancomycin 1 Gm/Ns 200 Ml) 1 gm in 200 mls @ 133 mls/hr IVPB Q24H [facility] Stop: 05/05/17 17:01 Last Admin: 05/01/17 16:28 Dose: 133 mls/hr Piperacillin Sod/Tazobactam Sod (Zosyn 2.25 Gm Iv Premix) 2.25 gm in 50 mls @ 100 mls/hr IVPB Q8H [facility] Multivitamins (Hexavitamin) 1 tab PO DAILY [facility] Last Admin: 05/01/17 10:48 Dose: 1 tab Mupirocin (Bactroban Ointment) 0 gm TOP BID [facility] Last Admin: 05/01/17 17:09 Dose: 1 applic [id number] Ethyl Esters (Lovaza) 1 gm PO BID [facility] Last Admin: 05/01/17 10:48 Dose: 1 gm Rosuvastatin Calcium (Crestor) 5 mg PO HS [facility] Last Admin: 04/30/17 21:59 Dose: 5 mg Saccharomyces Boulardii (Florastor) 250 mg PO BID [facility] Last Admin: 05/01/17 10:48 Dose: 250 mg Vitamin A (Vitamin A & D Oint Ud Foilpak) 1 ea TOP BID [facility] Last Admin: 05/01/17 10:48 Dose: 1 ea - Labs Labs: 05/01/17 07:12 05/01/17 07:12 Assessment and Plan - Assessment and Plan (Free Text) Assessment: Patient is seen and examined. Awake, alert, non ambulatory. PICC line is inserted, plan to discharge to [facility] today as per DR Dowling. Will continue with vanco and zosyn ivpb for 7 more days. To continue with wound care as per DR Gayle and follow up in the office as advised.
[2017-05-01] MEDS ORDERED: Piperacill/Tazo 2.25gm in Dex 2.25 GM/50 ML BAG IVPB SCH (22:00)
--- NOTE | 2017-05-02 06:31 | DS ---
She was seen on the same day for discharge. REASON FOR ADMISSION TO THE HOSPITAL: A 56-year-old [place] female with history of multiple sclerosis, bedridden, was admitted for cellulitis of the right foot. COURSE OF HOSPITALIZATION: The patient was admitted to medical floor and she was started on IV antibiotics. The patient had podiatry consult done by Dr. Coelho, and ID consult done by Dr. Ismael Juan. The patient improved and she had a PICC line placed and she was discharged to [facility] for completion of course of IV antibiotics. FINAL DIAGNOSES: 1. Cellulitis of the right foot. 2. Multiple sclerosis. 3. Hypercholesterolemia. Sasha MD Nitesh
== END 2017-05-01 20:47 | DRG 920 ==
LOC: C.ER 10:46 → C.9E 12:28 → C.3T 19:52
PROVIDERS: ADMIT Internal Medicine; ATTEND Internal Medicine
DX: T81.30XA Disruption of wound, unspecified, initial encounter (principal); L03.115 Cellulitis of right lower limb; G35 Multiple sclerosis; G82.20 Paraplegia, unspecified; E78.00 Pure hypercholesterolemia, unspecified; K21.9 Gastro-esophageal reflux disease without esophagitis; M21.611 Bunion of right foot; M20.12 Hallux valgus (acquired), left foot; L97.509 Non-pressure chronic ulcer of other part of unspecified foot with unspecified severity; M21.00 Valgus deformity, not elsewhere classified, unspecified site; A49.01 Methicillin susceptible Staphylococcus aureus infection, unspecified site; Z74.01 Bed confinement status; G83.21 Monoplegia of upper limb affecting right dominant side

== ENCOUNTER 2017-07-17 20:30 | Emergency (ER) | payer MEDICARE, MEDICAID ==
[2017-07-17 20:30] VITALS: BMI 25.4
[2017-07-17 20:38] VITALS: BP 139/90; PULSE 90; RESP 16; TEMP 97.4; O2SAT 100
--- NOTE | 2017-07-17 20:58 | C.PDOC ---
- HPI Time Seen by Provider: 07/17/17 20:58 Chief Complaint (Nursing): Trauma Past Medical History Vital Signs: Last Vital Signs Temp 97.4 F L 07/17/17 20:35 Pulse 90 07/17/17 20:35 Resp 16 07/17/17 20:35 BP 139/90 07/17/17 20:35 Pulse Ox 100 07/17/17 20:35 - Medical History PMH: Arthritis, Hypercholesterolemia, Multiple Sclerosis - [facility] Procedures DRAINAGE OF URETHRA WITH DRAINAGE DEVICE, ENDO (10/19/15) EXTRACTION OF LEFT FOOT SKIN, EXTERNAL APPROACH (06/26/16) INSERTION OF INFUSION DEV INTO SUP VENA CAVA, PERC APPROACH (04/24/17) MEASUREMENT OF URINARY PRESSURE, VIA OPENING (10/19/15) PLAIN RADIOGRAPHY OF BLADDER AND URETHRA (10/19/15) Family History: States: Unknown Family Hx - Social History Hx Tobacco Use: No Hx Alcohol Use: No Hx Substance Use: No - Immunization History Hx Tetanus Toxoid Vaccination: No Hx Influenza Vaccination: No Hx Pneumococcal Vaccination: No ED Course And Treatment O2 Sat by Pulse Oximetry: 100 Pulse Ox Interpretation: Normal Disposition Counseled Patient/Family Regarding: Studies Performed, Diagnosis, Need For Followup - Disposition Disposition Time: 20:58
--- NOTE | 2017-07-17 21:18 | C.PDOC ---
History Of Present Illness 56 year old female presents to the ED for evaluation after she sustained a fall earlier today. Patient states she was sitting in a chair when she lost balance, fell forward, and hit her head on a wall. Patient was able to stand up afterwards, but reports a laceration to the back of her head. She denies loss of consciousness, neck pain, and back pain. - HPI Time Seen by Provider: 07/17/17 20:58 Chief Complaint (Nursing): Trauma History Per: Patient History/Exam Limitations: no limitations Onset/Duration Of Symptoms: Hrs Location Of Injury: Posterior: Head Additional History Per: Patient Past Medical History Reviewed: Historical Data, Nursing Documentation, Vital Signs Vital Signs: Last Vital Signs Temp 97.4 F L 07/17/17 20:35 Pulse 90 07/17/17 20:35 Resp 16 07/17/17 20:35 BP 139/90 07/17/17 20:35 Pulse Ox 100 07/17/17 21:49 - Medical History PMH: Arthritis, Hypercholesterolemia, Multiple Sclerosis Surgical History: No Surg Hx - [facility] Procedures DRAINAGE OF URETHRA WITH DRAINAGE DEVICE, ENDO (10/19/15) EXTRACTION OF LEFT FOOT SKIN, EXTERNAL APPROACH (06/26/16) INSERTION OF INFUSION DEV INTO SUP VENA CAVA, PERC APPROACH (04/24/17) MEASUREMENT OF URINARY PRESSURE, VIA OPENING (10/19/15) PLAIN RADIOGRAPHY OF BLADDER AND URETHRA (10/19/15) Family History: States: Unknown Family Hx - Social History Hx Tobacco Use: No Hx Alcohol Use: No Hx Substance Use: No - Immunization History Hx Tetanus Toxoid Vaccination: No Hx Influenza Vaccination: No Hx Pneumococcal Vaccination: No Review Of Systems Skin: Positive for: Other (laceration to posterior scalp ) Neurological: Negative for: Other (LOC ) Physical Exam - Physical Exam Appears: Non-toxic, No Acute Distress Skin: Normal Color, Warm, Dry Head: Laceration (2cm, to posterior scalp with active bleeding ) Eye(s): bilateral: Normal Inspection Oral Mucosa: Moist Neck: Normal ROM, Supple Chest: Symmetrical, No Deformity, No Tenderness Cardiovascular: Rhythm Regular, No Murmur Respiratory: Normal Breath Sounds, No Rales, No Rhonchi, No Wheezing Gastrointestinal/Abdominal: Soft, No Tenderness Extremity: Normal ROM, Capillary Refill (less than 2 seconds) Neurological/Psych: Oriented x3, Normal Speech, Normal Cognition Gait: Steady ED Course And Treatment O2 Sat by Pulse Oximetry: 100 (on RA) Pulse Ox Interpretation: Normal Laceration - Laceration Repair posterior scalp Wound Length (In cm): 2cm Description Of Wound: Linear Anesthesia: Lidocaine 1% (6ml ) Wound Examination: Irrigated With Saline, No FB With Wound Exploration, No Tendon Injury With Wound Exploration Wound Closure: Tolleson (7) Wound Complexity: Simple Disposition Counseled Patient/Family Regarding: Diagnosis, Need For Followup - Disposition Referrals: Ady Dowling MD [Staff Provider] - Disposition: HOME/ ROUTINE Disposition Time: 21:33 Condition: IMPROVED Additional Instructions: Keep wound clean and dry and covered with antibiotic ointment. Return in 2 days for wound check and in 10 days for staple removal. Instructions: Laceration Repair With Tolleson (DC) Forms: [employer] (Frisian) - Clinical Impression Clinical Impression: Scalp laceration, Head injury - Scribe Statement The provider has reviewed the documentation as recorded by the Scribe (Chio Schaefer) Provider Attestation: All medical record entries made by the Scribe were at my direction and personally dictated by me. I have reviewed the chart and agree that the record accurately reflects my personal performance of the history, physical exam, medical decision making, and the department course for this patient. I have also personally directed, reviewed, and agree with the discharge instructions and disposition.
[2017-07-17] MEDS ORDERED: Lidocaine Hydrochloride 5 ML INJ ONE (21:19)
[2017-07-17] MEDS ORDERED: Bacitracin 500 Units/gm Oint Foilpak UD ONE (21:46)
== END 2017-07-17 21:56 | disposition home or self-care (01) ==
LOC: C.ER 20:30
DX: S01.01XA Laceration without foreign body of scalp, initial encounter (principal); W07.XXXA Fall from chair, initial encounter; Y92.89 Other specified places as the place of occurrence of the external cause

== ENCOUNTER 2017-07-20 16:10 | Emergency (ER) | payer MEDICARE, MEDICAID ==
[2017-07-20 16:20] VITALS: BMI 23.4
--- NOTE | 2017-07-20 16:24 | C.PDOC ---
History Of Present Illness 56yo female, presents to ER for a wound check. Patient was here on 07/17 after a head injury and had pablo placed. Denies any new injuries, headache, dizziness , fever, swelling, redness or drainage from the site. PMD: Ady Dowling Time Seen by Provider: 07/20/17 16:30 Chief Complaint (Nursing): Wound Check History Per: Patient History/Exam Limitations: no limitations Onset/Duration Of Symptoms: Days Ago Quality Of Symptoms: denies: Painful, Itching, Swollen, Draining Additional History Per: Patient Past Medical History Reviewed: Historical Data, Nursing Documentation, Vital Signs Vital Signs: Last Vital Signs Temp 98.3 F 07/20/17 16:21 Pulse 97 H 07/20/17 16:21 Resp 16 07/20/17 16:21 BP 117/80 07/20/17 16:21 Pulse Ox 100 07/20/17 16:21 - Medical History PMH: Arthritis, Hypercholesterolemia, Multiple Sclerosis Surgical History: No Surg Hx - [facility] Procedures DRAINAGE OF URETHRA WITH DRAINAGE DEVICE, ENDO (10/19/15) EXTRACTION OF LEFT FOOT SKIN, EXTERNAL APPROACH (06/26/16) INSERTION OF INFUSION DEV INTO SUP VENA CAVA, PERC APPROACH (04/24/17) MEASUREMENT OF URINARY PRESSURE, VIA OPENING (10/19/15) PLAIN RADIOGRAPHY OF BLADDER AND URETHRA (10/19/15) Family History: States: No Known Family Hx, Unknown Family Hx - Social History Hx Tobacco Use: No Hx Alcohol Use: No Hx Substance Use: No - Immunization History Hx Tetanus Toxoid Vaccination: No Hx Influenza Vaccination: No Hx Pneumococcal Vaccination: No Review Of Systems Except As Marked, All Systems Reviewed And Found Negative. Constitutional: Negative for: Fever, Chills Skin: Positive for: Other (scalp laceration ) Neurological: Negative for: Weakness, Headache, Dizziness Physical Exam - Physical Exam Appears: Non-toxic, No Acute Distress Skin: Normal Color, Warm, Dry Head: Normacephalic, Laceration (healing posterior scalp laceration with pablo in place. no surrounding erythema, no swelling or discharge noted.) Eye(s): bilateral: Normal Inspection Nose: Normal Oral Mucosa: Moist Neck: Supple Chest: Symmetrical Respiratory: No Accessory Muscle Use Neurological/Psych: Oriented x3 ED Course And Treatment Progress Note: Patient with well wound check, instructed to apply bacitracin on wound and to follow up with PMD for staple removal. Disposition - Disposition Disposition: HOME/ ROUTINE Disposition Time: 16:34 Condition: STABLE Prescriptions: Bacitracin OINT 1 applic TP BID #1 tube Instructions: Wound Care (DC) Forms: [employer] (Omani) - Clinical Impression Clinical Impression: Visit for wound check - PA / MANAGER ENGINE / Resident Statement MD/DO has reviewed & agrees with the documentation as recorded. - Scribe Statement The provider has reviewed the documentation as recorded by the Scribe (Tiara Pyle) Provider Attestation: All medical record entries made by the Scribe were at my direction and personally dictated by me. I have reviewed the chart and agree that the record accurately reflects my personal performance of the history, physical exam, medical decision making, and the department course for this patient. I have also personally directed, reviewed, and agree with the discharge instructions and disposition.
[2017-07-20 16:29] VITALS: BP 117/80; PULSE 97; RESP 16; TEMP 98.3; O2SAT 100
== END 2017-07-20 17:05 | disposition home or self-care (01) ==
LOC: C.ER 16:10
DX: Z48.00 Encounter for change or removal of nonsurgical wound dressing (principal)

== ENCOUNTER 2017-07-27 18:42 | Emergency (ER) | payer MEDICARE, MEDICAID ==
[2017-07-27 18:42] VITALS: BMI 23.4
[2017-07-27 18:48] VITALS: BP 112/72; PULSE 77; TEMP 98.6; O2SAT 100
--- NOTE | 2017-07-27 18:55 | C.PDOC ---
History Of Present Illness 56 year old female presenting to the ED for head staple removal after laceration repair on 07/17. Patient denies fever, headache, discharge or swelling. Time Seen by Provider: 07/27/17 18:49 Chief Complaint (Nursing): Suture/Staple Removal History Per: Patient History/Exam Limitations: no limitations Location Of Injury: Left: Head (Left posterior scalp) Past Medical History Reviewed: Historical Data, Nursing Documentation, Vital Signs Vital Signs: Last Vital Signs Temp 98.6 F 07/27/17 18:46 Pulse 77 07/27/17 18:46 Resp 20 07/27/17 19:06 BP 112/72 07/27/17 18:46 Pulse Ox 100 07/27/17 19:29 - Medical History PMH: Arthritis, Hypercholesterolemia, Multiple Sclerosis Surgical History: No Surg Hx - [facility] Procedures DRAINAGE OF URETHRA WITH DRAINAGE DEVICE, ENDO (10/19/15) EXTRACTION OF LEFT FOOT SKIN, EXTERNAL APPROACH (06/26/16) INSERTION OF INFUSION DEV INTO SUP VENA CAVA, PERC APPROACH (04/24/17) MEASUREMENT OF URINARY PRESSURE, VIA OPENING (10/19/15) PLAIN RADIOGRAPHY OF BLADDER AND URETHRA (10/19/15) Family History: States: No Known Family Hx - Social History Hx Tobacco Use: No Hx Alcohol Use: No Hx Substance Use: No - Immunization History Hx Tetanus Toxoid Vaccination: No Hx Influenza Vaccination: No Hx Pneumococcal Vaccination: No Review Of Systems Except As Marked, All Systems Reviewed And Found Negative. Neurological: Positive for: Headache. Negative for: Weakness, Numbness, Dizziness Physical Exam - Physical Exam Appears: Non-toxic, No Acute Distress Skin: Normal Color, Warm, Dry Head: Normacephalic, Other (Pablo on left posterior scalp, clean, dry, and intact) Eye(s): bilateral: Normal Inspection Neck: Supple Chest: Symmetrical Neurological/Psych: Oriented x3, Normal Speech ED Course And Treatment O2 Sat by Pulse Oximetry: 100 (RA) Pulse Ox Interpretation: Normal Medical Decision Making Medical Decision Making: Procedure: Pablo clean, dry, and intact. Pablo removed by PA with no difficulty. Patient tolerated it well. Patient stable and ready for discharge. Disposition Counseled Patient/Family Regarding: Diagnosis, Need For Followup - Disposition Disposition: HOME/ ROUTINE Disposition Time: 18:54 Condition: GOOD Instructions: Staple Removal Forms: [facility] (Spanish) - POA Present On Arrival: None - Clinical Impression Clinical Impression: Removal of pablo - PA / INSURANCE FOLLOW UP SPECIALIST / Resident Statement MD/DO has reviewed & agrees with the documentation as recorded. - Scribe Statement The provider has reviewed the documentation as recorded by the Scribe (Viktoriya Storey) All medical record entries made by the Scribe were at my direction and personally dictated by me. I have reviewed the chart and agree that the record accurately reflects my personal performance of the history, physical exam, medical decision making, and the department course for this patient. I have also personally directed, reviewed, and agree with the discharge instructions and disposition.
[2017-07-27 19:06] VITALS: RESP 20
== END 2017-07-27 19:06 | disposition home or self-care (01) ==
LOC: C.ER 18:42
DX: Z48.02 Encounter for removal of sutures (principal)

== ENCOUNTER 2017-10-28 06:49 | Emergency (ER) | payer MEDICARE, MEDICAID ==
[2017-10-28 06:49] VITALS: BMI 23.4
[2017-10-28] MEDS ORDERED: Sodium Chloride 0.9% 500 ML IV ONE (07:35)
[2017-10-28 08:13] LABS: BASO # 0.1 K/uL (0.0-0.2); BASO % 0.7 % (0.0-2.0); EOS # 0.1 K/uL (0.0-0.7); EOS % 0.6 % (0.0-4.0); HEMOGLOBIN 13.7 g/dL (11.0-16.0); LYMPH # 1.9 K/uL (1.0-4.3); LYMPH % 19.6 % (20.0-40.0); MEAN CELL VOLUME 81.4 fL (81.0-99.0); MEAN CORPUSCULAR HEMOGLOBIN 27.4 pg (27.0-31.0); MEAN CORPUSCULAR HGB CONC 33.6 g/dL (33.0-37.0); MEAN PLATELET VOLUME 9.3 fL (7.2-11.7); MONO # 0.6 K/uL (0.0-0.8); MONO % 6.5 % (0.0-10.0); NEUT # 7.1 K/uL (1.8-7.0); NEUT % 72.6 % (50.0-75.0); NRBC % 0.1 % (0.0-2.0); RBC 4.99 Mil/uL (3.80-5.20); WHITE BLOOD COUNT 9.7 K/uL (4.8-10.8)
--- NOTE | 2017-10-28 09:08 | C.PDOC ---
History Of Present Illness 57 year old female presents to the emergency department with complaints of two weeks of intermittent watery diarrhea with one to two episodes every day. Patient reports that she was evaluated by Dr. Alcala one week ago and was started on Lactaid which improved her symptoms, however she started having diarrhea again today. She denies vomiting, nausea, fever, dysuria, and hematuria. Time Seen by Provider: 10/28/17 07:12 Chief Complaint (Nursing): Abdominal Pain History Per: Patient History/Exam Limitations: no limitations Onset/Duration Of Symptoms: Hrs Current Symptoms Are (Timing): Still Present Associated Symptoms: Diarrhea. denies: Nausea, Vomiting Past Medical History Reviewed: Historical Data, Nursing Documentation, Vital Signs Vital Signs: Last Vital Signs Temp 97.5 F L 10/28/17 10:29 Pulse 76 10/28/17 10:29 Resp 17 10/28/17 10:29 BP 122/78 10/28/17 10:29 Pulse Ox 100 10/28/17 12:03 - Medical History PMH: Arthritis, Hypercholesterolemia, Multiple Sclerosis Surgical History: No Surg Hx - [facility] Procedures DRAINAGE OF URETHRA WITH DRAINAGE DEVICE, ENDO (10/19/15) EXTRACTION OF LEFT FOOT SKIN, EXTERNAL APPROACH (06/26/16) INSERTION OF INFUSION DEV INTO SUP VENA CAVA, PERC APPROACH (04/24/17) MEASUREMENT OF URINARY PRESSURE, VIA OPENING (10/19/15) PLAIN RADIOGRAPHY OF BLADDER AND URETHRA (10/19/15) Family History: States: No Known Family Hx - Social History Hx Tobacco Use: No Hx Alcohol Use: No Hx Substance Use: No - Immunization History Hx Tetanus Toxoid Vaccination: No Hx Influenza Vaccination: No Hx Pneumococcal Vaccination: No Review Of Systems Except As Marked, All Systems Reviewed And Found Negative. Gastrointestinal: Positive for: Diarrhea. Negative for: Nausea, Vomiting Genitourinary: Negative for: Dysuria, Hematuria Physical Exam - Physical Exam Appears: Non-toxic, No Acute Distress Skin: Warm, Dry Head: Atraumatic, Normacephalic Eye(s): bilateral: Normal Inspection Neck: Normal, Supple Chest: Symmetrical Cardiovascular: Rhythm Regular Respiratory: Normal Breath Sounds, No Rales, No Rhonchi, No Wheezing Gastrointestinal/Abdominal: Normal Exam, Soft, No Tenderness, No Guarding, No Rebound Neurological/Psych: Oriented x3, Normal Speech, Normal Cognition ED Course And Treatment - Laboratory Results Result Diagrams: 10/28/17 08:05 10/28/17 08:53 O2 Sat by Pulse Oximetry: 100 (RA) Pulse Ox Interpretation: Normal - Other Rad OBS SERIES X-Ray: Viewed By Me, Read By Radiologist Interpretation: Accession No. : [id number]. Patient Name / ID : RAJESH SANTANA / [id number]. Exam Date : 10/28/2017 11:19:28 ( Approved ). Study Comment : Sex / Age : F / 57Y. Creator : Derek Rush MD. Dictator : Derek Rush MD. Rehab Aide : Mill Controller : Derek Rush MD. Approver2 : Report Date : 10/28/2017 11:50:35. My Comment : . Date of service: 10/28/2017. PROCEDURE: Radiographs of the chest and abdomen ( obstructive series). HISTORY: abd pain, diarrhea. COMPARISON: Chest radiograph dated 06/26/2016; abdominal radiographs dated 05/23/2017. TECHNIQUE : AP radiograph of the chest, with upright and supine radiographs of the abdomen. FINDINGS: CHEST: Lungs: Clear. Cardiovascular: Normal size heart. No pulmonary vascular congestion. Pleura: No pleural fluid. No pneumothorax. Other findings: Right shoulder destructive changes. ABDOMEN AND PELVIS: Bowel : Unremarkable bowel gas pattern. No evidence of mechanical obstruction. Free air: None. Bones: Unremarkable. Other findings: Pelvic soft tissue calcifications redemonstrated. IMPRESSION: Interval right shoulder destructive changes. No focal consolidation or pleural effusion. No evidence of bowel obstruction. Progress Note: Plan: Bloodwork. IV Fluids Disposition Counseled Patient/Family Regarding: Studies Performed, Diagnosis, Need For Followup, Rx Given - Disposition Referrals: China Alcala [Staff Provider] - Disposition: HOME/ ROUTINE Disposition Time: 12:15 Condition: STABLE Additional Instructions: FOLLOW UP WITH DR ALCALA WITHIN 1 WEEK USE ANTIBIOTIC UNTIL FINISHED RETURN TO ER IF SYMPTOMS WORSEN Prescriptions: metroNIDAZOLE [Flagyl] 500 mg PO TID #21 tab Instructions: Diarrhea and Traveler's Diarrhea, Adult (DC) Forms: [employer] (Nicaraguan) Print Language: LUXEMBOURGER - Clinical Impression Clinical Impression: Diarrhea - Scribe Statement The provider has reviewed the documentation as recorded by the Scribe (Shayne Welsh) Provider Attestation: All medical record entries made by the Scribe were at my direction and personally dictated by me. I have reviewed the chart and agree that the record accurately reflects my personal performance of the history, physical exam, medical decision making, and the department course for this patient. I have also personally directed, reviewed, and agree with the discharge instructions and disposition.
[2017-10-28 09:15] LABS: ALB/GLOB RATIO 1.6 (1.0-2.1); ALBUMIN 4.3 g/dL (3.5-5.0); ALT/SGPT 30 U/L (9-52); AST/SGOT 22 U/L (14-36); BLOOD UREA NITROGEN 6 mg/dL (7-17); CALCIUM 9.5 mg/dl (8.6-10.4); GFR NON-AFRICAN AMERICAN > 60; LIPASE 122 U/L (23-300)
[2017-10-28 10:07] LABS: SQUAMOUS EPITHIAL 10 /hpf (0-5); URINE BACTERIA OCC (<OCC); URINE BILIRUBIN NEGATIVE (NEGATIVE); URINE BLOOD 1+ (NEGATIVE); URINE CLARITY Hazy (Clear); URINE COLOR Yellow (YELLOW); URINE GLUCOSE (UA) NORMAL (Normal); URINE LEUKOCYTE ESTERASE 3+ Leu/uL (Negative); URINE PROTEIN NEGATIVE (NEGATIVE); URINE UROBILINOGEN NORMAL mg/dL (0.2-1.0)
--- NOTE | 2017-10-28 11:52 | RAD ---
Date of service: 10/28/2017 PROCEDURE: Radiographs of the chest and abdomen (obstructive series) HISTORY: abd pain, diarrhea COMPARISON: Chest radiograph dated 06/26/2016; abdominal radiographs dated 05/23/2017. TECHNIQUE: AP radiograph of the chest, with upright and supine radiographs of the abdomen. FINDINGS: CHEST: Lungs: Clear. Cardiovascular: Normal size heart. No pulmonary vascular congestion. Pleura: No pleural fluid. No pneumothorax. Other findings: Right shoulder destructive changes. ABDOMEN AND PELVIS: Bowel: Unremarkable bowel gas pattern. No evidence of mechanical obstruction. Free air: None. Bones: Unremarkable. Other findings: Pelvic soft tissue calcifications redemonstrated. IMPRESSION: Interval right shoulder destructive changes. No focal consolidation or pleural effusion. No evidence of bowel obstruction.
[2017-10-28 12:54] VITALS: BP 122/82; PULSE 80; RESP 18; TEMP 97.8; O2SAT 97
== END 2017-10-28 12:55 | disposition home or self-care (01) ==
LOC: C.ER 06:49
DX: R19.7 Diarrhea, unspecified (principal)
CPT/HCPCS: 74022; 80053; 81001; 83690; 85025; 99285; J7040

== ENCOUNTER 2017-11-28 06:00 | Day surgery (SDC) | payer MEDICARE, MEDICAID ==
[2017-11-28 07:21] VITALS: O2SAT 100
--- NOTE | 2017-11-28 09:13 | CP.SDSHP ---
Same Day Surgery H & P - History Proposed Procedure: EGD/ COLONSCOPY Pre-Op Diagnosis: SEE NOTES - Previous Medical/Surgical History Endocrine/Metabolic: Other Neuro: Other Misc: Other Pain: 4.Moderate Pain - Allergies Allergies: Allergies No Known Allergies Allergy (Verified 11/28/17 06:57) - Physical Exam General Appearance: N Vital Signs: Vital Signs 11/28/17 06:40 Temperature 97.7 F Pulse Rate 80 Respiratory 20 Rate Blood Pressure 126/76 O2 Sat by Pulse 100 Oximetry Mental Status: Alert & Oriented x3 Neuro: Other Lungs: WNL GI: Other - {Optional Preform as Required} Breast: WNL Integument: WNL : Other Ortho: WNL ENT: WNL - Impression Pt. Evaluated Today:Candidate for Anesthesia & Procedure: Yes - Date & Time Time: 09:12 Short Stay Discharge - Short Stay Discharge Admitting Diagnosis/Reason for Visit: FUNCTIONAL DYSPEPSIA HEMORRHAGE OF ANUS AND RECTUM Disposition: HOME/ ROUTINE
[2017-11-28] MEDS ORDERED: Propofol 10 mg/ml Inj (20 ML) ONE (09:18)
[2017-11-28] MEDS ORDERED: Belladonna-Phenobarbital PO ONE (10:10)
[2017-11-28] MEDS ORDERED: Lactated Ringer's 1,000 ML IV ONE (10:15)
[2017-11-28 11:52] VITALS: TEMP 97
[2017-11-28 12:00] VITALS: BP 140/80; PULSE 88; RESP 20
== END 2017-11-28 11:15 | disposition home or self-care (01) ==
LOC: C.ENDO 06:00
PROVIDERS: ATTEND Specialist
DX: K30 Functional dyspepsia (principal); K62.5 Hemorrhage of anus and rectum; K58.9 Irritable bowel syndrome, unspecified; K64.8 Other hemorrhoids; K60.2 Anal fissure, unspecified; B96.81 Helicobacter pylori [H. pylori] as the cause of diseases classified elsewhere; K31.7 Polyp of stomach and duodenum; K44.9 Diaphragmatic hernia without obstruction or gangrene
CPT/HCPCS: 43239; 45380; 88305; 88313; 88342; J2704; J7120

== ENCOUNTER 2018-01-08 17:18 | Inpatient (IN) | payer MEDICARE, MEDICAID ==
[2018-01-08 17:18] VITALS: BMI 23.4
--- NOTE | 2018-01-08 19:41 | C.PDOC ---
History Of Present Illness 57 year old female is sent to the ED by Dr. Arizmendi for evaluation of urinary retention. Patient has PMHx MS, she states for the past 5 days she has having trouble voiding. Patient went to see her PMD today who did a bladder scan that showed patient had more than 1 liter in her bladder. Patient was referred to the ED for catheterization and lab work. Patient is incontinent of small amounts of urine. Patient denies fever, chills, nausea, vomit, diarrhea, back pain rash, weakness, numbness. She has no abdominal pain associated with the distended bladder. Time Seen by Provider: 01/08/18 19:29 Chief Complaint (Nursing): Female Genitourinary History Per: Patient History/Exam Limitations: no limitations Onset/Duration Of Symptoms: Days (5) Current Symptoms Are (Timing): Still Present Quality Of Discomfort: "Pain" Associated Symptoms: Urinary Symptoms. denies: Nausea, Vomiting, Diarrhea Recent travel outside of the [place] States: No Additional History Per: Patient Abnormal Vaginal Bleeding: No Past Medical History Reviewed: Historical Data, Nursing Documentation, Vital Signs Vital Signs: Last Vital Signs Temp 98.4 F 01/08/18 17:47 Pulse 78 01/08/18 17:47 Resp 18 01/08/18 17:47 BP 130/84 01/08/18 17:47 Pulse Ox 100 01/08/18 17:47 - Medical History PMH: Arthritis, Hypercholesterolemia, Multiple Sclerosis, Chronic Kidney Disease Surgical History: No Surg Hx - [facility] Procedures DRAINAGE OF URETHRA WITH DRAINAGE DEVICE, ENDO (10/19/15) EXTRACTION OF LEFT FOOT SKIN, EXTERNAL APPROACH (06/26/16) INSERTION OF INFUSION DEV INTO SUP VENA CAVA, PERC APPROACH (04/24/17) MEASUREMENT OF URINARY PRESSURE, VIA OPENING (10/19/15) PLAIN RADIOGRAPHY OF BLADDER AND URETHRA (10/19/15) Family History: States: Unknown Family Hx - Social History Hx Tobacco Use: No Hx Alcohol Use: No Hx Substance Use: No - Immunization History Hx Tetanus Toxoid Vaccination: No Hx Influenza Vaccination: No Hx Pneumococcal Vaccination: No Review Of Systems Constitutional: Negative for: Fever, Chills Cardiovascular: Negative for: Chest Pain Respiratory: Negative for: Cough, Shortness of Breath Gastrointestinal: Negative for: Nausea, Vomiting, Abdominal Pain, Diarrhea Genitourinary: Positive for: Incontinence, Other (retention) Musculoskeletal: Positive for: Other (generalized stiffness related to MS). Negative for: Back Pain Neurological: Positive for: Numbness. Negative for: Weakness Physical Exam - Physical Exam Appears: Non-toxic, No Acute Distress Skin: Normal Color, Warm, Dry Head: Atraumatic, Normacephalic Eye(s): bilateral: Normal Inspection Neck: Normal ROM, Supple Chest: Symmetrical Cardiovascular: Rhythm Regular Respiratory: Normal Breath Sounds, No Rales, No Rhonchi, No Wheezing Gastrointestinal/Abdominal: Bowel Sounds (quiet), Soft, No Tenderness, Distention, No Guarding, No Rebound, Other (bladder palpable at umbilicus) Extremity: Normal ROM, No Tenderness, No Swelling Neurological/Psych: Oriented x3, Normal Speech, Normal Cognition, No Normal Sensation (sesnory deficits chronic), Other (generalized weakness baseline) Gait: Steady ED Course And Treatment - Laboratory Results Result Diagrams: 01/08/18 20:37 01/08/18 20:37 Lab Interpretation: No Acute Changes O2 Sat by Pulse Oximetry: 100 (ON RA) Pulse Ox Interpretation: Normal Progress Note: Zelaya catheter inserted and bladder drained of 1000ml of clear dilute urine. Reevaluation Time: 22:25 Reassessment Condition: Improved - Physician Consult Information Outcome Of Conversation: Case discussed with Dr Arizmendi (MS specialist from [facility]) who advises patient be evaluated by geographic information systems analyst for observation for possible post obstructive diuresis and resulting hypokalemia and hypotension. Patient seen in the ED by Dr Christensen. She remains stable. BP 149/76, continuing to drain a dilute urine. Dr Gupta agrees to admit to his service. Medical Decision Making Medical Decision Making: Plan: * Labs * Urine culture * Zelaya * UA Progress/Update: 9:14pm : Spoke with Dr. Arizmendi regarding the patient's case. Disposition - Disposition Disposition: HOSPITALIZED Disposition Time: 22:53 Condition: STABLE - POA Present On Arrival: None - Clinical Impression Clinical Impression: Multiple sclerosis, Neurogenic bladder - Scribe Statement The provider has reviewed the documentation as recorded by the Scribe Luis Armando Ortiz All medical record entries made by the Scribe were at my direction and per sonally dictated by me. I have reviewed the chart and agree that the record accurately reflects my personal performance of the history, physical exam, medical decision making, and the department course for this patient. I have also personally directed, reviewed, and agree with the discharge instructions and disposition.
[2018-01-08 20:43] LABS: BASO # 0.1 K/uL (0.0-0.2); BASO % 0.6 % (0.0-2.0); EOS # 0.1 K/uL (0.0-0.7); HEMOGLOBIN 14.9 g/dL (11.0-16.0); LYMPH # 3.1 K/uL (1.0-4.3); LYMPH % 28.9 % (20.0-40.0); MEAN CELL VOLUME 82.7 fL (81.0-99.0); MEAN CORPUSCULAR HEMOGLOBIN 27.4 pg (27.0-31.0); MEAN CORPUSCULAR HGB CONC 33.2 g/dL (33.0-37.0); MEAN PLATELET VOLUME 8.9 fL (7.2-11.7); MONO # 1.1 K/uL (0.0-0.8); MONO % 10.5 % (0.0-10.0); NEUT # 6.4 K/uL (1.8-7.0); NRBC % 0.1 % (0.0-2.0); RBC 5.44 Mil/uL (3.80-5.20); RED CELL DISTRIBUTION WIDTH 14.7 % (11.5-14.5); WHITE BLOOD COUNT 10.8 K/uL (4.8-10.8)
[2018-01-08 21:00] LABS: ALB/GLOB RATIO 1.5 (1.0-2.1); ALT/SGPT 30 U/L (9-52); AST/SGOT 33 U/L (14-36); BLOOD UREA NITROGEN 13 mg/dL (7-17); CALCIUM 9.6 mg/dl (8.6-10.4); GFR NON-AFRICAN AMERICAN > 60
[2018-01-08 21:09] LABS: URINE BACTERIA FEW (<OCC); URINE BILIRUBIN NEGATIVE (NEGATIVE); URINE BLOOD 1+ (NEGATIVE); URINE CLARITY Hazy (Clear); URINE COLOR Yellow (YELLOW); URINE GLUCOSE (UA) NORMAL (Normal); URINE LEUKOCYTE ESTERASE 3+ Leu/uL (Negative); URINE PROTEIN NEGATIVE (NEGATIVE); URINE UROBILINOGEN NORMAL mg/dL (0.2-1.0)
[2018-01-08] MEDS ORDERED: Dextrose 5%/0.45% NS 1,000 ML IV SCH (23:00)
[2018-01-09 06:07] LABS: HEMOGLOBIN 12.2 g/dL (11.0-16.0); MEAN CELL VOLUME 82.1 fL (81.0-99.0); MEAN CORPUSCULAR HEMOGLOBIN 27.7 pg (27.0-31.0); MEAN CORPUSCULAR HGB CONC 33.8 g/dL (33.0-37.0); MEAN PLATELET VOLUME 9.2 fL (7.2-11.7); RBC 4.39 Mil/uL (3.80-5.20); RED CELL DISTRIBUTION WIDTH 14.8 % (11.5-14.5); WHITE BLOOD COUNT 10.9 K/uL (4.8-10.8)
--- NOTE | 2018-01-09 06:27 | CP.PCM.CON ---
History of Present Illness - History of Present Illness History of Present Illness: 57 F with h/o MS, with h/o urinary retention, h/o weakness right arm > left, right leg weaker then left, h/o right heal wound that has been healing, uses walker to walk, alert and oriented. Patient was sent in from her neurology f/u visit when urinary retention noticed in the office and patient had overflow incontinence. In ER bladder scan showed > 1lit of urine. Zelaya cath inserted in ER got initial 1 lit of urine. ICU eval called as post obstructive diuresis was suspected along with labile vitals were expected. Patient upon eval was alert and oriented, not in distress, to her baseline in her functional state, BP has been maintained, without significant flucctuations and over night urine out put has been in range of 100-150ml/hr as per nursing, total urine out put including initial 1 lit is 1850. Patient has been getting ivf during night at 100mls/hr. PMH as above Med reviewed Allergies NKDA Family history not contributory Social Being taken care by Aunt, denies smoking, alcohol, illicit drugs Review of Systems - Review of Systems All systems: reviewed and no additional remarkable complaints except (HPI) Past Patient History - Infectious Disease Hx of Infectious Diseases: None - Past Medical History & Family History Past Medical History?: Yes - Past Social History Smoking Status: Never Smoked Alcohol: None Home Situation {Lives}: With Family - CARDIAC Hx Hypercholesterolemia: Yes - PULMONARY Hx Respiratory Disorders: No - NEUROLOGICAL Hx Multiple Sclerosis: Yes - HEENT Hx HEENT Problems: Yes Other/Comment: WEARS GLASSES - RENAL Hx Chronic Kidney Disease: Yes - ENDOCRINE/METABOLIC Hx Endocrine Disorders: No - HEMATOLOGICAL/ONCOLOGICAL Hx Blood Disorders: No - INTEGUMENTARY Hx Dermatological Problems: Yes Other/Comment: HX: 12/26/16-CELLULITIS AND INFECTED RIGHT TOE BUNION - MUSCULOSKELETAL/RHEUMATOLOGICAL Hx Arthritis: Yes - GASTROINTESTINAL Hx Gastrointestinal Disorders: Yes Hx Gastroesophageal Reflux: Yes - GENITOURINARY/GYNECOLOGICAL Hx Genitourinary Disorders: Yes Other/Comment: MS - PSYCHIATRIC Hx Substance Use: No - SURGICAL HISTORY Hx Surgeries: Yes Hx Orthopedic Surgery: Yes (FOOT SURGERY) Other/Comment: HX:right arm fx; H/O right foot surgery - ANESTHESIA Hx Anesthesia: Yes Hx Anesthesia Reactions: No Hx Malignant Hyperthermia: No Meds Allergies/Adverse Reactions: Allergies Allergy/AdvReac Type Severity Reaction Status Date / Time No Known Allergies Allergy Verified 01/08/18 17:46 - Medications Medications: Current Medications Potassium Chloride 20 meq/ (Sodium Chloride) 1,010 mls @ 100 mls/hr IV .Q10H6M DO Dextrose/Sodium Chloride (Dextrose 5%/0.45% Ns 1000 Ml) 1,000 mls @ 80 mls/hr IV .[id number] DO Physical Exam - Additional Findings Additional findings: * HEENT LAURA * Neck Supple * Chest Clear * CVS regular, no gallop or rub * PA soft, nt bs present * Ext no edema, healing wound in the right heal * Skin reduced torgor, clinically slightly dry * 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1 Baso # (Auto) 0.1 Sodium 135 Potassium 4.5 Chloride 99 Carbon Dioxide 26 Anion Gap 15 BUN 13 Creatinine 0.5 L Est GFR ( Amer) > 60 Est GFR (Non-Af Amer) > 60 Random Glucose 88 Calcium 9.6 Total Bilirubin 0.6 AST 33 ALT 30 Alkaline Phosphatase 87 Total Protein 8.4 H Albumin 5.0 Globulin 3.4 Albumin/Globulin Ratio 1.5 Urine Color Yellow Urine Clarity Hazy Urine pH 7.0 Ur Specific [place] 1.005 Urine Protein Negative Urine Glucose (UA) Normal Urine Ketones Negative Urine Blood 1+ H Urine Nitrate Negative Urine Bilirubin Negative Urine Urobilinogen Normal Ur Leukocyte Esterase 3+ H Urine WBC (Auto) 378 H Urine RBC (Auto) 20 H Urine Bacteria Few H Assessment & Plan - Assessment and Plan (Free Text) Assessment: * Urinary retention, unlikely obstructive uropathy as renal function fine, less likely to have severe diuretic phase, vital signs not labile * MS with weakness as mentioned above Plan: * IVF, balance with out put * I/o * labs * Gi/DVT prophylaxis * Since patient's output being measure, replacement fluid could be approximated, vital have not been labile patient could be monitored in the tele floor, at this time.
[2018-01-09 06:38] LABS: ALB/GLOB RATIO 1.6 (1.0-2.1); ALBUMIN 3.8 g/dL (3.5-5.0); ALT/SGPT 30 U/L (9-52); AST/SGOT 21 U/L (14-36); BLOOD UREA NITROGEN 13 mg/dL (7-17); CALCIUM 8.7 mg/dl (8.6-10.4); GFR NON-AFRICAN AMERICAN > 60
[2018-01-09 09:57] LABS: ALB/GLOB RATIO 1.6 (1.0-2.1); ALBUMIN 3.9 g/dL (3.5-5.0); ALT/SGPT 29 U/L (9-52); AST/SGOT 33 U/L (14-36); BLOOD UREA NITROGEN 14 mg/dL (7-17); CALCIUM 8.8 mg/dl (8.6-10.4); GFR NON-AFRICAN AMERICAN > 60
[2018-01-09] MEDS ORDERED: VIT D3 PO SCH (10:00)
[2018-01-09] MEDS ORDERED: CALCIUM CARB CITRATE PO SCH (10:00)
[2018-01-09] MEDS ORDERED: Ergocalciferol 50,000 Intl Units Cap PO SCH (10:00)
[2018-01-09] MEDS: Multiple Vitamins Tab PO SCH (10:40)
[2018-01-09] MEDS: Omega-3-Acid Ethyl Esters 1 GM Cap PO SCH ×2 (10:40→18:34)
[2018-01-09] MEDS: Pantoprazole 40 mg EC Tab PO SCH (10:40)
--- NOTE | 2018-01-09 11:19 | CP.PCM.PN ---
Subjective - Date & Time of Evaluation Date of Evaluation: 01/09/18 Time of Evaluation: 11:16 - Subjective Subjective: PGY3 Note for Dr. Gupta Patient is swedish speaking; translation provided by Dr. Gupta This patient was admitted to the hospital overnight for urinary retention; the patient has a long standing history of MS (on IV rituximab outpatient) for the treatment of her MS and f/u with neurology as necessary for it. The patient lives alone, and has twice a day home care. She is unable to use her upper extremities 2/2 to MS and has weakness and low dexterity on both upper extremities. When the patient was seen today she was in good spirits and denies all symptoms and was asking to have the carrizales taken out. Objective - Vital Signs/Intake and Output Vital Signs (last 24 hours): Temp Pulse Resp BP Pulse Ox 98.2 F 70 20 93/61 L 100 01/09/18 07:20 01/09/18 07:20 01/09/18 07:20 01/09/18 07:20 01/09/18 07:20 Intake and Output: 01/09/18 01/09/18 06:59 18:59 Intake Total 300 Output Total 1910 Balance -1610 - Medications Medications: Current Medications Baclofen (Lioresal) 10 mg PO TID [facility] Bethanechol Chloride (Urecholine) 25 mg PO TID [facility] Calcium Carbonate (Oscal) 500 mg PO DAILY [facility] Last Admin: 01/09/18 10:40 Dose: 500 mg Ergocalciferol (Drisdol 50,000 Intl Units Cap) 1 cap PO QWK [facility] Last Admin: 01/09/18 10:40 Dose: 1 cap Heparin Sodium (Porcine) (Heparin) 4,000 units SC Q12 [facility] Last Admin: 01/09/18 10:44 Dose: 4,000 units Potassium Chloride 20 meq/ (Sodium Chloride) 1,010 mls @ 100 mls/hr IV .Q10H6M [facility] Last Admin: 01/09/18 03:31 Dose: 100 mls/hr Multivitamins (Hexavitamin) 1 tab PO DAILY [facility] Last Admin: 01/09/18 10:40 Dose: 1 tab Racgl-1-Mona Ethyl Esters (Lovaza) 1 gm PO BID [facility] Last Admin: 01/09/18 10:40 Dose: 1 gm Pantoprazole Sodium (Protonix Ec Tab) 40 mg PO DAILY [facility] Last Admin: 01/09/18 10:40 Dose: 40 mg Rosuvastatin Calcium (Crestor) 10 mg PO DAILY [facility] Tamsulosin HCl (Flomax) 0.4 mg PO DAILY [facility] Last Admin: 01/09/18 10:40 Dose: 0.4 mg - Labs Labs: 01/09/18 05:58 01/09/18 05:58 - Constitutional Appears: Well, Non-toxic - Head Exam Head Exam: ATRAUMATIC, NORMAL INSPECTION - Eye Exam Eye Exam: EOMI, PERRL - ENT Exam ENT Exam: Mucous Membranes Moist - Neck Exam Neck Exam: Full ROM, Lymphadenopathy - Respiratory Exam Respiratory Exam: Clear to Ausculation Bilateral, NORMAL BREATHING PATTERN. absent: Rales, Rhonchi, Wheezes - Cardiovascular Exam Cardiovascular Exam: REGULAR RHYTHM, +S1, +S2 - GI/Abdominal Exam GI & Abdominal Exam: Soft, Normal Bowel Sounds - Back Exam Back Exam: CVA tenderness (L) - Neurological Exam Neurological Exam: Alert, Awake, Oriented x3. absent: Normal Gait - Psychiatric Exam Psychiatric exam: Normal Affect - Skin Skin Exam: Warm Assessment and Plan - Assessment and Plan (Free Text) Assessment: 57yo F w/ a PMhx of MS admitted for acute urinary retention Acute Urinary Retention / to MS -carrizales d/c today; patient will be straight cath BID and taught how to straight cath -f/u UCx and UA; UA looks grossly positive and will give 1g of ceftriaxone to treat uncomplicated UA -Urology; Dr. Lovett consulted; thank you for your help -patient to be taught how to straight cath and caretakers as well -d/c indwelling carrizales 2/2 to UTI risk -1g ceftriaxone given for UTI 01/09/18 -c/w tamsulosin and bethanecol -c/w baclofen HLD -c/w with rosuvastatin Proph -Hep SC -Heart Healthy Diet -GI prophyalxis not indicated -FULL CODE Case discussed and seen with Dr. Alonso Durand PGY3
--- NOTE | 2018-01-09 13:00 | US ---
The the date of service: 01/09/2018 PROCEDURE: Ultrasound of the Kidneys HISTORY: urinaary retention COMPARISON: None available. TECHNIQUE: Sonogram of the kidneys. FINDINGS: RIGHT KIDNEY: Measures: 10.3 x 3.5 x 4.1 cm. Normal in size, contour and echogenicity. No stone, solid mass lesion or hydronephrosis visualized. LEFT KIDNEY: Measures: 10.9 x5 0.0 x 3.9 cm. Normal in size, contour and echogenicity. No stone, solid mass lesion or hydronephrosis visualized. OTHER FINDINGS: In situ unclamped Zelaya catheter is present within the collapsed urinary bladder. IMPRESSION: Unremarkable renal sonogram.. In situ unclamped Zelaya catheter within a collapsed urinary bladder.
--- NOTE | 2018-01-09 19:41 | CP.PCM.CON ---
History of Present Illness - History of Present Illness History of Present Illness: UROLOGY CONSULTATION IMP: URINARY RETENTION MULTIPLE SCLEROSIS NEUROGENIC BLADDER FULL NOTE T/F Past Patient History - Infectious Disease Hx of Infectious Diseases: None - Past Medical History & Family History Past Medical History?: Yes - Past Social History Smoking Status: Never Smoked Alcohol: None Home Situation {Lives}: With Family - CARDIAC Hx Hypercholesterolemia: Yes - PULMONARY Hx Respiratory Disorders: No - NEUROLOGICAL Hx Multiple Sclerosis: Yes - HEENT Hx HEENT Problems: Yes Other/Comment: WEARS GLASSES - RENAL Hx Chronic Kidney Disease: Yes - ENDOCRINE/METABOLIC Hx Endocrine Disorders: No - HEMATOLOGICAL/ONCOLOGICAL Hx Blood Disorders: No - INTEGUMENTARY Hx Dermatological Problems: Yes Other/Comment: HX: 12/26/16-CELLULITIS AND INFECTED RIGHT TOE BUNION - MUSCULOSKELETAL/RHEUMATOLOGICAL Hx Arthritis: Yes - GASTROINTESTINAL Hx Gastrointestinal Disorders: Yes Hx Gastroesophageal Reflux: Yes - GENITOURINARY/GYNECOLOGICAL Hx Genitourinary Disorders: Yes Other/Comment: MS - PSYCHIATRIC Hx Substance Use: No - SURGICAL HISTORY Hx Surgeries: Yes Hx Orthopedic Surgery: Yes (FOOT SURGERY) Other/Comment: HX:right arm fx; H/O right foot surgery - ANESTHESIA Hx Anesthesia: Yes Hx Anesthesia Reactions: No Hx Malignant Hyperthermia: No Meds Allergies/Adverse Reactions: Allergies Allergy/AdvReac Type Severity Reaction Status Date / Time No Known Allergies Allergy Verified 01/08/18 17:46 - Medications Medications: Current Medications Baclofen (Lioresal) 10 mg PO TID [facility] Last Admin: 01/09/18 18:34 Dose: 10 mg Bethanechol Chloride (Urecholine) 25 mg PO TID [facility] Last Admin: 01/09/18 18:34 Dose: 25 mg Calcium Carbonate (Oscal) 500 mg PO DAILY [facility] Last Admin: 01/09/18 10:40 Dose: 500 mg Ergocalciferol (Drisdol 50,000 Intl Units Cap) 1 cap PO QWK [facility] Last Admin: 01/09/18 10:40 Dose: 1 cap Heparin Sodium (Porcine) (Heparin) 4,000 units SC Q12 [facility] Last Admin: 01/09/18 10:44 Dose: 4,000 units Potassium Chloride 20 meq/ (Sodium Chloride) 1,010 mls @ 100 mls/hr IV .Q10H6M [facility] Last Admin: 01/09/18 18:50 Dose: Not Given Multivitamins (Hexavitamin) 1 tab PO DAILY [facility] Last Admin: 01/09/18 10:40 Dose: 1 tab Yonwz-0-Rwbs Ethyl Esters (Lovaza) 1 gm PO BID [facility] Last Admin: 01/09/18 18:34 Dose: 1 gm Pantoprazole Sodium (Protonix Ec Tab) 40 mg PO DAILY [facility] Last Admin: 01/09/18 10:40 Dose: 40 mg Pneumococcal Polyvalent Vaccine (Pneumovax 23 Vaccine) 0.5 ml IM .ONCE ONE Stop: 01/10/18 12:01 Rosuvastatin Calcium (Crestor) 10 mg PO DAILY@2200 [facility] Tamsulosin HCl (Flomax) 0.4 mg PO DAILY [facility] Last Admin: 01/09/18 10:40 Dose: 0.4 mg Results - Vital Signs Recent Vital Signs: Last Vital Signs Temp 98.2 F 01/09/18 15:44 Pulse 77 01/09/18 16:00 Resp 18 01/09/18 15:44 BP 112/72 01/09/18 15:44 Pulse Ox 100 01/09/18 15:44 - Labs Result Diagrams: 01/09/18 05:58 01/09/18 05:58 Labs: Laboratory Results - last 24 hr 01/08/18 01/08/18 01/08/18 20:37 20:37 20:51 WBC 10.8 RBC 5.44 H Hgb 14.9 Hct 45.0 MCV 82.7 MCH 27.4 MCHC 33.2 RDW 14.7 H Plt Count 342 MPV 8.9 Neut % (Auto) 59.0 Lymph % (Auto) 28.9 [place] % (Auto) 10.5 H Eos % (Auto) 1.0 Baso % (Auto) 0.6 Neut # (Auto) 6.4 Lymph # (Auto) 3.1 [place] # (Auto) 1.1 H Eos # (Auto) 0.1 Baso # (Auto) 0.1 Sodium 135 Potassium 4.5 Chloride 99 Carbon Dioxide 26 Anion Gap 15 BUN 13 Creatinine 0.5 L Est GFR ( Amer) > 60 Est GFR (Non-Af Amer) > 60 POC Glucose (mg/dL) Random Glucose 88 Calcium 9.6 Phosphorus Magnesium Total Bilirubin 0.6 AST 33 ALT 30 Alkaline Phosphatase 87 Total Protein 8.4 H Albumin 5.0 Globulin 3.4 Albumin/Globulin Ratio 1.5 Urine Color Yellow Urine Clarity Hazy Urine pH 7.0 Ur Specific [place] 1.005 Urine Protein Negative Urine Glucose (UA) Normal Urine Ketones Negative Urine Blood 1+ H Urine Nitrate Negative Urine Bilirubin Negative Urine Urobilinogen Normal Ur Leukocyte Esterase 3+ H Urine WBC (Auto) 378 H Urine RBC (Auto) 20 H Urine Bacteria Few H 01/09/18 01/09/18 01/09/18 05:58 05:58 05:58 WBC 10.9 H RBC 4.39 Hgb 12.2 D Hct 36.0 MCV 82.1 MCH 27.7 MCHC 33.8 RDW 14.8 H Plt Count 315 MPV 9.2 Neut % (Auto) Lymph % (Auto) [place] % (Auto) Eos % (Auto) Baso % (Auto) Neut # (Auto) Lymph # (Auto) [place] # (Auto) Eos # (Auto) Baso # (Auto) Sodium 137 136 Potassium 3.8 3.9 Chloride 102 104 Carbon Dioxide 25 21 L Anion Gap 13 14 BUN 13 14 Creatinine 0.5 L 0.5 L Est GFR ( Amer) > 60 > 60 Est GFR (Non-Af Amer) > 60 > 60 POC Glucose (mg/dL) Random Glucose 117 H 114 H Calcium 8.7 8.8 Phosphorus 4.6 H Magnesium 1.9 Total Bilirubin 0.5 0.5 AST 21 33 ALT 30 29 Alkaline Phosphatase 67 79 Total Protein 6.3 6.3 Albumin 3.8 3.9 Globulin 2.4 2.4 Albumin/Globulin Ratio 1.6 1.6 Urine Color Urine Clarity Urine pH Ur Specific [place] Urine Protein Urine Glucose (UA) Urine Ketones Urine Blood Urine Nitrate Urine Bilirubin Urine Urobilinogen Ur Leukocyte Esterase Urine WBC (Auto) Urine RBC (Auto) Urine Bacteria 01/09/18 12:01 WBC RBC Hgb Hct MCV MCH MCHC RDW Plt Count MPV Neut % (Auto) Lymph % (Auto) [place] % (Auto) Eos % (Auto) Baso % (Auto) Neut # (Auto) Lymph # (Auto) [place] # (Auto) Eos # (Auto) Baso # (Auto) Sodium Potassium Chloride Carbon Dioxide Anion Gap BUN Creatinine Est GFR ( Amer) Est GFR (Non-Af Amer) POC Glucose (mg/dL) 158 H Random Glucose Calcium Phosphorus Magnesium Total Bilirubin AST ALT Alkaline Phosphatase Total Protein Albumin Globulin Albumin/Globulin Ratio Urine Color Urine Clarity Urine pH Ur Specific [place] Urine Protein Urine Glucose (UA) Urine Ketones Urine Blood Urine Nitrate Urine Bilirubin Urine Urobilinogen Ur Leukocyte Esterase Urine WBC (Auto) Urine RBC (Auto) Urine Bacteria Assessment & Plan - Date & Time Date: 01/09/18 Time: 19:30
[2018-01-10 06:42] LABS: BASO # 0.1 K/uL (0.0-0.2); BASO % 0.5 % (0.0-2.0); EOS # 0.1 K/uL (0.0-0.7); EOS % 1.2 % (0.0-4.0); HEMOGLOBIN 12.1 g/dL (11.0-16.0); LYMPH # 2.3 K/uL (1.0-4.3); LYMPH % 20.9 % (20.0-40.0); MEAN CELL VOLUME 82.2 fL (81.0-99.0); MEAN CORPUSCULAR HEMOGLOBIN 27.1 pg (27.0-31.0); MEAN CORPUSCULAR HGB CONC 32.9 g/dL (33.0-37.0); MEAN PLATELET VOLUME 10.2 fL (7.2-11.7); MONO # 0.9 K/uL (0.0-0.8); MONO % 8.4 % (0.0-10.0); NEUT # 7.5 K/uL (1.8-7.0); RBC 4.48 Mil/uL (3.80-5.20); RED CELL DISTRIBUTION WIDTH 14.7 % (11.5-14.5); WHITE BLOOD COUNT 10.9 K/uL (4.8-10.8)
[2018-01-10 07:01] LABS: ALB/GLOB RATIO 1.5 (1.0-2.1); ALBUMIN 3.7 g/dL (3.5-5.0); ALT/SGPT 23 U/L (9-52); AST/SGOT 22 U/L (14-36); BLOOD UREA NITROGEN 10 mg/dL (7-17); CALCIUM 8.7 mg/dl (8.6-10.4); GFR NON-AFRICAN AMERICAN > 60
--- NOTE | 2018-01-10 07:08 | HP ---
HISTORY OF PRESENT ILLNESS: Patient chief complaint of neurogenic bladder. The patient has seen a neurologist, who advised admission for catheter insertion and monitoring electrolytes. The patient has a longstanding history of MS. The patient . Ultrasound revealed incomplete bladder emptying. PHYSICAL EXAMINATION: GENERAL: The patient is awake, alert and oriented. VITAL SIGNS: Temperature 98, pulse 90. HEENT: Within normal limits. NECK: Supple. CHEST: Symmetrical. HEART: Regular. ABDOMEN: Soft. EXTREMITIES: No edema. ASSESSMENT AND PLAN: The patient suffers from neurogenic bladder secondary to multiple sclerosis. The patient to get bed rest, supportive care and catheter insertion . Demetrio Gupta MD
[2018-01-10] MEDS: Omega-3-Acid Ethyl Esters 1 GM Cap PO SCH ×2 (09:11→19:32)
[2018-01-10] MEDS: Multiple Vitamins Tab PO SCH (09:11)
[2018-01-10] MEDS: Pantoprazole 40 mg EC Tab PO SCH (09:12)
[2018-01-10] MEDS ORDERED: Pneumococcal 23-Valent Vaccine IM ONE (12:00)
--- NOTE | 2018-01-10 13:03 | CP.PCM.PN ---
Subjective - Date & Time of Evaluation Date of Evaluation: 01/10/18 Time of Evaluation: 13:00 - Subjective Subjective: progress note. attending: Dr. Gupta. pt seen and examined at bedside. No acute distress. no events overnight. no fevers, chills, vomiting, diarrhea. urology is following patient. Objective - Vital Signs/Intake and Output Vital Signs (last 24 hours): Temp Pulse Resp BP Pulse Ox 97.8 F 84 18 124/80 98 01/10/18 07:25 01/10/18 07:25 01/10/18 07:25 01/10/18 07:25 01/10/18 07:25 Intake and Output: 01/10/18 01/10/18 06:59 18:59 Intake Total 820 Output Total 4400 Balance -3580 - Medications Medications: Current Medications Baclofen (Lioresal) 10 mg PO TID [facility] Last Admin: 01/10/18 09:12 Dose: 10 mg Bethanechol Chloride (Urecholine) 25 mg PO TID [facility] Last Admin: 01/10/18 09:12 Dose: 25 mg Calcium Carbonate (Oscal) 500 mg PO DAILY [facility] Last Admin: 01/10/18 09:11 Dose: 500 mg Ergocalciferol (Drisdol 50,000 Intl Units Cap) 1 cap PO QWK [facility] Last Admin: 01/09/18 10:40 Dose: 1 cap Heparin Sodium (Porcine) (Heparin) 4,000 units SC Q12 [facility] Last Admin: 01/10/18 09:11 Dose: 4,000 units Potassium Chloride 20 meq/ (Sodium Chloride) 1,010 mls @ 100 mls/hr IV .Q10H6M [facility] Last Admin: 01/10/18 04:29 Dose: Not Given Multivitamins (Hexavitamin) 1 tab PO DAILY [facility] Last Admin: 01/10/18 09:11 Dose: 1 tab Fcfui-6-Yrks Ethyl Esters (Lovaza) 1 gm PO BID [facility] Last Admin: 01/10/18 09:11 Dose: 1 gm Pantoprazole Sodium (Protonix Ec Tab) 40 mg PO DAILY [facility] Last Admin: 01/10/18 09:12 Dose: 40 mg Rosuvastatin Calcium (Crestor) 10 mg PO DAILY@2200 [facility] Last Admin: 01/09/18 21:51 Dose: 10 mg Tamsulosin HCl (Flomax) 0.4 mg PO DAILY DO Last Admin: 01/10/18 09:12 Dose: 0.4 mg - Labs Labs: 01/10/18 06:34 01/10/18 06:34 - Constitutional Appears: Non-toxic, No Acute Distress - Head Exam Head Exam: ATRAUMATIC, NORMAL INSPECTION, NORMOCEPHALIC - Eye Exam Eye Exam: EOMI - ENT Exam ENT Exam: Mucous Membranes Moist, Normal Exam - Respiratory Exam Respiratory Exam: NORMAL BREATHING PATTERN - Cardiovascular Exam Cardiovascular Exam: REGULAR RHYTHM, +S1, +S2 - GI/Abdominal Exam GI & Abdominal Exam: Soft, Normal Bowel Sounds. absent: Tenderness - Extremities Exam Extremities Exam: Full ROM, Normal Inspection - Back Exam Back Exam: NORMAL INSPECTION - Neurological Exam Neurological Exam: Alert, Awake, CN II-XII Intact - Psychiatric Exam Psychiatric exam: Normal Affect, Normal Mood - Skin Skin Exam: Dry, Intact, Normal Color, Warm Assessment and Plan - Assessment and Plan (Free Text) Assessment: This is a 57 yo female with past medical hx of multiple sclerosis, originally from [place], admitted for acute urinary retention Acute Urinary Retention -likely secondary to MS -carrizales d/c ; patient will be straight cath BID and taught how to straight cath -f/u UCx and UA; UA looks grossly positive and will give 1g of ceftriaxone to treat uncomplicated UA -Urology; Dr. Lovett/ [place] consulted; thank you for your help -patient to be taught how to straight cath and caretakers as well -d/c indwelling carrizales 2/2 to UTI risk -1g ceftriaxone given for UTI 01/09/18 -c/w tamsulosin and bethanecol -c/w baclofen HLD -c/w with rosuvastatin Proph -Hep SC -Heart Healthy Diet -GI prophyalxis not indicated -FULL CODE Case discussed and seen with Dr. Gupta
--- NOTE | 2018-01-10 18:28 | US ---
Date of service: 01/10/2018 PROCEDURE: Ultrasound of the Bladder HISTORY: Urinary retention COMPARISON: Comparison made with prior bladder ultrasound 07/08/2017.. TECHNIQUE: Sonographic evaluation of the bladder was performed. FINDINGS: Urinary bladder is markedly distended. Low-level echoes are present within the urinary bladder likely representing echogenic debris.. No significant wall thickening. No evidence of intraluminal urinary bladder calculi. Neither the right nor the left ureteral jets visualized on this exam No free fluid in pelvis. Prevoid Volume: 1549 cc. Patient unable to void.. IMPRESSION: Large prevoid bladder volume estimated at approximately 1549 cc however patient was unable to void during this exam... Echogenic debris within the bladder lumen. See above discussion for additional details.
--- NOTE | 2018-01-10 23:58 | CARD ---
APPROVED REPORT Date of service: 01/09/2018 EKG Measurement Heart [id number] <Conclusion> Normal sinus rhythm Normal ECG
[2018-01-11 07:56] LABS: BASO # 0.1 K/uL (0.0-0.2); BASO % 0.8 % (0.0-2.0); EOS # 0.2 K/uL (0.0-0.7); EOS % 2.9 % (0.0-4.0); HEMOGLOBIN 12.3 g/dL (11.0-16.0); LYMPH # 1.8 K/uL (1.0-4.3); MEAN CELL VOLUME 81.9 fL (81.0-99.0); MEAN CORPUSCULAR HEMOGLOBIN 27.7 pg (27.0-31.0); MEAN CORPUSCULAR HGB CONC 33.8 g/dL (33.0-37.0); MONO # 0.7 K/uL (0.0-0.8); MONO % 8.7 % (0.0-10.0); NEUT # 5.2 K/uL (1.8-7.0); NEUT % 64.6 % (50.0-75.0); NRBC % 0.1 % (0.0-2.0); RBC 4.43 Mil/uL (3.80-5.20); RED CELL DISTRIBUTION WIDTH 14.6 % (11.5-14.5)
[2018-01-11 08:21] LABS: ALB/GLOB RATIO 1.4 (1.0-2.1); ALBUMIN 3.9 g/dL (3.5-5.0); ALT/SGPT 27 U/L (9-52); AST/SGOT 21 U/L (14-36); BLOOD UREA NITROGEN 16 mg/dL (7-17); CALCIUM 8.9 mg/dl (8.6-10.4); GFR NON-AFRICAN AMERICAN > 60
[2018-01-11] MEDS: Multiple Vitamins Tab PO SCH (11:05)
[2018-01-11] MEDS: Pantoprazole 40 mg EC Tab PO SCH (11:05)
[2018-01-11] MEDS: Omega-3-Acid Ethyl Esters 1 GM Cap PO SCH ×2 (11:08→18:30)
[2018-01-12 09:09] LABS: BASO % 0.7 % (0.0-2.0); EOS # 0.2 K/uL (0.0-0.7); EOS % 2.1 % (0.0-4.0); HEMOGLOBIN 13.1 g/dL (11.0-16.0); LYMPH # 2.1 K/uL (1.0-4.3); LYMPH % 29.1 % (20.0-40.0); MEAN CELL VOLUME 81.4 fL (81.0-99.0); MEAN CORPUSCULAR HEMOGLOBIN 28.4 pg (27.0-31.0); MEAN CORPUSCULAR HGB CONC 34.8 g/dL (33.0-37.0); MEAN PLATELET VOLUME 9.5 fL (7.2-11.7); MONO # 0.5 K/uL (0.0-0.8); MONO % 7.6 % (0.0-10.0); NEUT # 4.3 K/uL (1.8-7.0); NEUT % 60.5 % (50.0-75.0); NRBC % 0.1 % (0.0-2.0); RBC 4.62 Mil/uL (3.80-5.20); RED CELL DISTRIBUTION WIDTH 14.5 % (11.5-14.5); WHITE BLOOD COUNT 7.2 K/uL (4.8-10.8)
[2018-01-12 09:36] LABS: ALB/GLOB RATIO 1.5 (1.0-2.1); ALBUMIN 4.3 g/dL (3.5-5.0); ALT/SGPT 28 U/L (9-52); AST/SGOT 27 U/L (14-36); BLOOD UREA NITROGEN 17 mg/dL (7-17); CALCIUM 9.2 mg/dl (8.6-10.4); GFR NON-AFRICAN AMERICAN > 60
[2018-01-12] MEDS: Omega-3-Acid Ethyl Esters 1 GM Cap PO SCH ×2 (10:14→17:12)
[2018-01-12] MEDS: Multiple Vitamins Tab PO SCH (10:14)
[2018-01-12] MEDS: Pantoprazole 40 mg EC Tab PO SCH (10:14)
[2018-01-12] MEDS ORDERED: Magnesium Hydroxide Susp 30 ml UD PO PRN (11:58)
--- NOTE | 2018-01-12 14:04 | RAD ---
Date of service: 01/12/2018 HISTORY: Urinary retention COMPARISON: Comparison made with prior plain film radiographs 10/28/2017. FINDINGS: BOWEL: Normal. No obstruction. No free air. BONES: Normal. OTHER FINDINGS: Extensive of presume soft tissue calcification both buttocks of uncertain etiology clinical correlation recommended.. IMPRESSION: No evidence of acute mechanical bowel obstruction.
[2018-01-13 02:38] VITALS: RESP 20
--- NOTE | 2018-01-13 07:17 | CON ---
DATE: 01/09/2018 UROLOGY CONSULTATION REQUESTED BY: Demetrio Gupta MD UROLOGY CONSULTATION FILLED BY: Sandra Max MD REASON FOR CONSULTATION: Urinary retention. HISTORY OF PRESENT ILLNESS: The patient is a 57-year-old female with urinary retention. The patient is in otherwise fair health. The patient has history of multiple sclerosis for the past 20 years. She receives current injection therapy for multiple sclerosis. The patient reports that she has some restricted use of her upper extremities due to multiple sclerosis. The patient has fair appetite. No hematuria. No dysuria. The patient has had poor stream. The patient was found to have urinary retention. Zelaya catheter was inserted. The patient reports no history of urolithiasis. She is uncertain regarding history of previous urinary tract infection. No flank pain. The patient reports fair appetite. The patient is single. She lives alone. Mrs. Baker reports that she is comfortable at present. The patient previously reports that she had a good urinary control. The patient has had constipation in the past as well. No diarrhea. No hematochezia. No chest pain. No recent fever or rigors. PHYSICAL EXAMINATION: GENERAL: The patient is a well-developed, well-nourished, middle-aged female. The patient is awake and alert. The patient is oriented. The patient is in good spirits. ABDOMEN: Soft, nontender, nondistended. No mass or organomegaly. GENITOURINARY: The urine is clear via the Zelaya catheter. LABORATORY DATA: Reviewed as well. IMPRESSION: A 57-year-old female with urinary retention. History of multiple sources. Likely neurogenic bladder. 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 Less likely is bladder outlet obstruction. Contributing factor or concomitant factor may be the patient's constipation. RECOMMENDATIONS AND PLAN: Zelaya catheter in place. Recommend further urologic evaluation including cystogram, urodynamic studies, and cystoscopy. Upper tract evaluation as well regarding possible urolithiasis, including KUB and renal ultrasound. Recommend obtaining urine analysis and urine culture. Possible intermittent self-catheterization as therapy. Possible indwelling Zelaya catheter therapy. Further therapy to follow according to the patient's clinical course. Thank you for recommending the patient for urology consultation. [place] MD Mans[place] cc: Demetrio Gupta MD
[2018-01-13 08:19] LABS: BASO # 0.1 K/uL (0.0-0.2); BASO % 0.7 % (0.0-2.0); EOS # 0.1 K/uL (0.0-0.7); EOS % 1.7 % (0.0-4.0); HEMOGLOBIN 13.6 g/dL (11.0-16.0); LYMPH # 2.2 K/uL (1.0-4.3); LYMPH % 29.3 % (20.0-40.0); MEAN CELL VOLUME 82.2 fL (81.0-99.0); MEAN CORPUSCULAR HEMOGLOBIN 27.3 pg (27.0-31.0); MEAN CORPUSCULAR HGB CONC 33.3 g/dL (33.0-37.0); MEAN PLATELET VOLUME 9.3 fL (7.2-11.7); MONO # 0.7 K/uL (0.0-0.8); MONO % 9.8 % (0.0-10.0); NEUT # 4.4 K/uL (1.8-7.0); NEUT % 58.5 % (50.0-75.0); NRBC % 0.1 % (0.0-2.0); RBC 4.98 Mil/uL (3.80-5.20); RED CELL DISTRIBUTION WIDTH 14.7 % (11.5-14.5); WHITE BLOOD COUNT 7.6 K/uL (4.8-10.8)
--- NOTE | 2018-01-13 08:22 | CP.PCM.PN ---
Subjective - Date & Time of Evaluation Date of Evaluation: 01/13/18 Time of Evaluation: 08:22 - Subjective Subjective: PGY2 Progress note for Dr. Gupta Patient was seen and examined at bedside in no acute distress. Patient states she has chronic pain "all over". Patient is tolerating diet and had a normal BM yesterday. The patient denies chest pain, palpitations, shortness of breath, cough, nausea, vomiting, fevers. Objective - Vital Signs/Intake and Output Vital Signs (last 24 hours): Temp Pulse Resp BP Pulse Ox 97.9 F 60 20 104/71 95 01/12/18 23:50 01/13/18 04:00 01/12/18 23:50 01/12/18 23:50 01/12/18 23:50 Intake and Output: 01/13/18 01/13/18 06:59 18:59 Intake Total 420 Output Total 6000 Balance -5580 - Medications Medications: Current Medications Baclofen (Lioresal) 10 mg PO TID [facility] Last Admin: 01/12/18 17:13 Dose: 10 mg Bethanechol Chloride (Urecholine) 25 mg PO TID [facility] Last Admin: 01/12/18 17:12 Dose: 25 mg Calcium Carbonate (Oscal) 500 mg PO DAILY [facility] Last Admin: 01/12/18 10:14 Dose: 500 mg Docusate Sodium (Colace) 100 mg PO BID [facility] Last Admin: 01/12/18 17:12 Dose: 100 mg Ergocalciferol (Drisdol 50,000 Intl Units Cap) 1 cap PO QWK [facility] Last Admin: 01/09/18 10:40 Dose: 1 cap Magnesium Hydroxide (Milk Of Magnesia) 30 ml PO DAILY PRN PRN Reason: Constipation Last Admin: 01/12/18 12:24 Dose: 30 ml Multivitamins (Hexavitamin) 1 tab PO DAILY [facility] Last Admin: 01/12/18 10:14 Dose: 1 tab Gyrfi-6-Jbwm Ethyl Esters (Lovaza) 1 gm PO BID [facility] Last Admin: 01/12/18 17:12 Dose: 1 gm Pantoprazole Sodium (Protonix Ec Tab) 40 mg PO DAILY [facility] Last Admin: 01/12/18 10:14 Dose: 40 mg Rosuvastatin Calcium (Crestor) 10 mg PO DAILY@2200 [facility] Last Admin: 01/12/18 21:02 Dose: 10 mg Tamsulosin HCl (Flomax) 0.4 mg PO DAILY DO Last Admin: 01/12/18 10:14 Dose: 0.4 mg - Labs Labs: 01/12/18 09:00 01/12/18 09:00 - Constitutional Appears: No Acute Distress - Head Exam Head Exam: ATRAUMATIC, NORMAL INSPECTION - Eye Exam Eye Exam: EOMI, Normal appearance - ENT Exam ENT Exam: Mucous Membranes Moist - Respiratory Exam Respiratory Exam: Clear to Ausculation Bilateral, NORMAL BREATHING PATTERN. absent: Rales, Rhonchi, Wheezes, Respiratory Distress - Cardiovascular Exam Cardiovascular Exam: REGULAR RHYTHM, +S1, +S2 - GI/Abdominal Exam GI & Abdominal Exam: Soft, Normal Bowel Sounds. absent: Distended, Firm, Tenderness - Exam Additional comments: Carrizales in place - Extremities Exam Extremities Exam: Normal Inspection. absent: Pedal Edema, Tenderness - Neurological Exam Neurological Exam: Alert, Awake - Psychiatric Exam Psychiatric exam: Normal Affect, Normal Mood - Skin Skin Exam: Dry, Intact, Normal Color, Warm Assessment and Plan - Assessment and Plan (Free Text) Plan: This is a 57 yo female with past medical hx of multiple sclerosis, originally from [place], admitted for acute urinary retention Acute Urinary Retention - likely secondary to MS - Carrizales in place since 01/12/18 - UA 3+ LE, 378 WBCs, neg nitrates, few bacteria; gave 1g of ceftriaxone to treat uncomplicated UA on 01/09/18 - Urine cx: + corynebacterium species - Urology; Dr. Max consulted; thank you for your help * per Dr. 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 * carrizales in place; recommends urologic eval including cystogram, urodynamic studies, and cystoscopy; upper tract eval as well regarding urolithiasis, including KUB and renal ultrasound. recommend UA and urine cx * possible intermittent self catheterization as therapy; possible indwelling carrizales catheter therapy; - patient to be taught how to straight cath and caretakers as well - c/w tamsulosin and bethanecol - c/w baclofen HLD - c/w with rosuvastatin Constipation - Colace 100mg PO BID - Milk of mag 30ml PO daily prn Prophylaxis - Hep SC, SCDs - Heart Healthy Diet - GI prophylaxis not indicated - FULL CODE All management/orders per Dr. Gupta Patient is stable for discharge to home per Dr. Gupta. Patient requires visiting nurse and home service to assist with Carrizales catheter care. Carrizales catheter must be changed weekly. Patient must go home with a small leg bag . Patient must continue home medications. Patient must also continue the following new medications: 1. Flomax 0.4mg PO daily- take 1 tablet daily 2. Bethanechol 25mg PO TID- take 1 tablet three times a day 3. Baclofen 10mg PO TID- take 1 tablet three times a day 4. Colace 100mg PO BID- take 1 tablet twice a day Prescriptions were sent electronically to patient's preferred pharmacy. Patient must follow up with PMD, Dr. Gupta, and urologist, Dr. Max, within one wee of discharge. If symptoms worsen or reoccur, patient should return to nearest ED.
[2018-01-13 09:05] LABS: ALB/GLOB RATIO 1.5 (1.0-2.1); ALBUMIN 4.4 g/dL (3.5-5.0); ALT/SGPT 33 U/L (9-52); AST/SGOT 31 U/L (14-36); BLOOD UREA NITROGEN 20 mg/dL (7-17); CALCIUM 9.4 mg/dl (8.6-10.4); GFR NON-AFRICAN AMERICAN > 60
[2018-01-13] MEDS: Omega-3-Acid Ethyl Esters 1 GM Cap PO SCH (09:21)
[2018-01-13] MEDS: Multiple Vitamins Tab PO SCH (09:21)
[2018-01-13] MEDS: Pantoprazole 40 mg EC Tab PO SCH (09:21)
[2018-01-13 09:22] VITALS: BP 107/70; PULSE 70; TEMP 98.1; O2SAT 96
--- NOTE | 2018-01-13 15:28 | PCM.URO ---
Urology Progress Note - Objective Lab Studies: Reviewed (carrizales to sd ok for discharge) Lab Results Last 24 Hours: Laboratory Results - last 24 hr 01/13/18 01/13/18 08:12 08:12 WBC 7.6 RBC 4.98 Hgb 13.6 Hct 41.0 MCV 82.2 MCH 27.3 MCHC 33.3 RDW 14.7 H Plt Count 315 MPV 9.3 Neut % (Auto) 58.5 Lymph % (Auto) 29.3 [place] % (Auto) 9.8 Eos % (Auto) 1.7 Baso % (Auto) 0.7 Neut # (Auto) 4.4 Lymph # (Auto) 2.2 [place] # (Auto) 0.7 Eos # (Auto) 0.1 Baso # (Auto) 0.1 Sodium 133 Potassium 4.3 Chloride 95 L Carbon Dioxide 24 Anion Gap 18 BUN 20 H Creatinine 0.6 L Est GFR ( Amer) > 60 Est GFR (Non-Af Amer) > 60 Random Glucose 102 Calcium 9.4 Phosphorus 4.6 H Magnesium 2.1 Total Bilirubin 0.6 AST 31 ALT 33 Alkaline Phosphatase 67 Total Protein 7.3 Albumin 4.4 Globulin 2.9 Albumin/Globulin Ratio 1.5 Intake & Output: Intake & Output 01/12/18 01/13/18 01/13/18 18:59 06:59 18:59 Intake Total 420 Output Total 6000 Balance -5580 Weight 120 lb Intake: Oral 420 Output: Urine 6000 Urethral (Carrizales) 6000 Vital Signs: Vital Signs - 24 hr 01/12/18 01/12/18 01/13/18 23:50 23:57 04:00 Temperature 97.9 F Pulse Rate 67 63 60 Respiratory 20 Rate Blood Pressure 104/71 O2 Sat by Pulse 95 Oximetry 01/13/18 07:00 Temperature 98.1 F Pulse Rate 70 Respiratory 20 Rate Blood Pressure 107/70 O2 Sat by Pulse 96 Oximetry
--- NOTE | 2018-01-14 06:52 | PN ---
DATE: 01/13/2018 SUBJECTIVE: The patient has neurogenic bladder. The patient has an indwelling Zelaya catheter. She is scheduled for discharge home today. She presented to the care with Dr. Gupta and we are asked to see the patient. The patient is currently resting comfortable. The Zelaya catheter is in place. She has trach to her bag and she is with this. Questions were answered . The plan will be outpatient followup. For now, maintain the Zelaya catheter. The patient will reach out to us and then when she reaches out to hospital, try to schedule change of the catheter. We explained that about four to six weeks is the usual time frame. Vu Max MD
== END 2018-01-13 14:50 | disposition home or self-care (01) | DRG 59 ==
LOC: C.ER 17:18 → C.6T 22:53
PROVIDERS: ADMIT Internal Medicine Pulmonary Disease; ATTEND Internal Medicine Pulmonary Disease
PROC: 0T9B70Z Drainage of Bladder with Drainage Device, Via Natural or Artificial Opening (ICD-10-PCS; principal; 2018-01-08)
DX: G35 Multiple sclerosis (principal); N31.8 Other neuromuscular dysfunction of bladder; R33.8 Other retention of urine; N39.0 Urinary tract infection, site not specified; K21.9 Gastro-esophageal reflux disease without esophagitis; E78.5 Hyperlipidemia, unspecified; E78.00 Pure hypercholesterolemia, unspecified; N18.9 Chronic kidney disease, unspecified; G89.29 Other chronic pain

== ENCOUNTER 2018-04-16 11:11 | Outpatient (CLI) | payer MEDICARE, MEDICAID | END 2018-04-16 11:12 | disposition home or self-care (01) | LOC: C.LAB 11:11 | DX: G35 Multiple sclerosis (principal) ==

== ENCOUNTER 2018-07-09 10:09 | Outpatient (CLI) | payer MEDICARE, MEDICAID | END 2018-07-09 10:10 | disposition home or self-care (01) | LOC: C.MRIC 10:09 | DX: G35 Multiple sclerosis (principal); R53.1 Weakness; R26.9 Unspecified abnormalities of gait and mobility; R41.89 Other symptoms and signs involving cognitive functions and awareness; R33.9 Retention of urine, unspecified; D89.9 Disorder involving the immune mechanism, unspecified; R25.2 Cramp and spasm ==